=== PATIENT | female | born 1985 | race Caucasian/White ===

== ENCOUNTER 2017-09-10 20:56 | Emergency (ER) | payer BC, OTHER ==
[~2017-09-10] VITALS: Ht 160 cm; Wt 90.7 kg
[2017-09-10 22:30] LABS: BILIRUBIN,URINE NEGATIVE (NEGATIVE); CLARITY,URINE CLEAR; COLOR,URINE YELLOW; GLUCOSE, URINE (UA) NEGATIVE (NEGATIVE); KETONES,URINE 2+ (NEGATIVE); LEUKOCYTE ESTERASE ,URINE 1+ (NEGATIVE); NITRITE,URINE NEGATIVE (NEGATIVE); PH,URINE 6.5 (5-9); PROTEIN,URINE NEGATIVE (NEGATIVE); UROBILINOGEN,URINE 4 MG/DL (NORMAL)
[2017-09-10 22:32] LABS: BASOPHILS % (AUTO) 0 % (0-10); EOSINOPHILS # (AUTO) 0.1 10^3/uL (0.0-0.3); EOSINOPHILS % (AUTO) 1 % (0-10); HEMATOCRIT 38 % (35-52); HEMOGLOBIN 13.6 G/DL (11.5-16.0); LYMPHOCYTES # (AUTO) 1.1 X 10^3 (1.0-4.0); LYMPHOCYTES % (AUTO) 14 % (12-44); MEAN CORPUSCULAR HEMOGLOBIN 29 PG (25-34); MEAN CORPUSCULAR HGB CONC 35 G/DL (32-36); MEAN CORPUSCULAR VOLUME 83 FL (80-99); MEAN PLATELET VOLUME 9.1 FL (7.4-10.4); MONOCYTES # (AUTO) 0.9 X 10^3 (0.0-1.0); MONOCYTES % (AUTO) 11 % (0-12); NEUTROPHILS # (AUTO) 5.8 X 10^3 (1.8-7.8); NEUTROPHILS % (AUTO) 73 % (42-75); PLATELET COUNT 229 10^3/uL (130-400); RED BLOOD COUNT 4.64 10^6/uL (4.35-5.85); RED CELL DISTRIBUTION WIDTH 13.6 % (10.0-14.5); WHITE BLOOD COUNT 7.9 10^3/uL (4.3-11.0)
[2017-09-10 22:43] LABS: INR 1.1 (0.8-1.4); PROTHROMBIN TIME PATIENT 14.2 SEC (12.2-14.7)
[2017-09-10 22:47] LABS: AMPHETAMINE SCREEN, URINE NEGATIVE (NEGATIVE); BARBITURATE SCREEN URINE NEGATIVE (NEGATIVE); BENZODIAZEPINES SCREEN URINE NEGATIVE (NEGATIVE); CANNABINOID SCREEN, URINE NEGATIVE (NEGATIVE); COCAINE SCREEN URINE NEGATIVE (NEGATIVE); METHADONE STAT NEGATIVE (NEGATIVE); METHAMPHETAMINE SCREEN URINE S NEGATIVE (NEGATIVE); OPIATE SCREEN URINE NEGATIVE (NEGATIVE); OXYCODONE STAT NEGATIVE (NEGATIVE); PROPOXYPHENE STAT NEGATIVE (NEGATIVE); TRICYCLIC ANTIDEPRESSANTS SCRE NEGATIVE (NEGATIVE)
[2017-09-10 22:48] LABS: ALANINE AMINOTRANSFERASE 109 U/L (0-55); ALBUMIN 4.3 GM/DL (3.2-4.5); ALKALINE PHOSPHATASE 108 U/L (40-136); AMYLASE 42 U/L (25-125); BILIRUBIN,TOTAL 0.9 MG/DL (0.1-1.0); BUN/CREATININE RATIO 7; CALCIUM 9.1 MG/DL (8.5-10.1); CARBON DIOXIDE 19 MMOL/L (21-32); CHLORIDE 108 MMOL/L (98-107); CREATININE SERUM 0.71 MG/DL (0.60-1.30); GFR ESTIMATED > 60; GLUCOSE 94 MG/DL (70-105); LIPASE 27 U/L (8-78); POTASSIUM 3.5 MMOL/L (3.6-5.0); SODIUM 138 MMOL/L (135-145); TOTAL PROTEIN 7.2 GM/DL (6.4-8.2)
[2017-09-10 22:53] LABS: BACTERIA,URINE TRACE /HPF
[2017-09-10] MEDS ORDERED: RX-DOXYCYCLINE 100 MG (VIBRAMYCIN) TAB PPK#2 PO STA (23:25)
[2017-09-10] MEDS ORDERED: DOXY100C42 PO (23:28)
--- NOTE | 2017-09-10 23:28 | ED General ---
General Chief Complaint: Chest Wall/Rib Pain Stated Complaint: CHILLS/CP/ARMS TINGLING Nursing Triage Note: c/o chills and chest discomfort with deep breathing or movement Nursing Sepsis Screen: No Definite Risk Source of Information: Patient History of Present Illness Date Seen by Provider: Sep 10, 2017 Time Seen by Provider: 21:48 Initial Comments PT ARRIVES VIA POV PT STATES "I KEEP GETTING WARM AND I GET TINGLING IN MY CHEST AND IT GOES DOWN BOTH MY ARMS" --THOSE SYMPTOMS ARE NOT PRESENT NOW. THEN STATES "I CAN'T GET WARM AND I'M COLD" STATES HER TEMP WAS 99.2, AND SHE HAS HAD SWEATES SLIGHT COUGH SLIGHT SHORTNESS OF BREATH NO NAUSEA/VOMITING NO SWELLING IN LEGS/FEET NO KNOWN SICK CONTACTS NO HISTORY OF SIMILAR HAS NOT TAKEN ANYTHING FOR SYMPTOMS PT STATES SYMPTOMS BEGAN WHILE SHE WAS AT WORK, AROUND 1500, STATES SHE GOT OFF WORK AT 2000 AND CAME HERE. LMP 08/18/17. NORMAL. NO CONTROL NO PCP--STATES SHE JUST MOVED HERE LAST MARCH FROM [place] Allergies and Home Medications Allergies Coded Allergies: No Known Drug Allergies (Unverified , 09/10/17) Home Medications Doxycycline Monohydrate 100 Mg Capsule, 100 MG PO BID Prescribed by: MACIEJ ARAIZA on 09/10/17 9166 Patient Home Medication List Home Medication List Reviewed: Yes Review of Systems Constitutional: see HPI, chills, diaphoresis, fever EENTM: no symptoms reported Respiratory: no symptoms reported Cardiovascular: no symptoms reported Gastrointestinal: no symptoms reported Genitourinary: no symptoms reported : No LMP: August 18, 2017 Musculoskeletal: no symptoms reported Skin: no symptoms reported Psychiatric/Neurological: See HPI, Tingling Hematologic/Lymphatic: No Symptoms Reported Immunological/Allergic: no symptoms reported Past Jscfvan-Wmequj-Czbnvy Hx Patient Social History Alcohol Use: Denies Use Recreational Drug Use: No Smoking Status: Never a Smoker Recent Foreign Travel: No Contact w/Someone Who Travel: No Recent Infectious Disease Expo: No Recent Hopitalizations: No Physical Abuse: No Sexual Abuse: No Past Medical History Surgeries: No Respiratory: No Cardiac: No Neurological: No Reproductive Disorders: No Genitourinary: No Gastrointestinal: No Musculoskeletal: No Endocrine: No HEENT: No Cancer: No Psychosocial: No Nursing Suicide Risk Score: 0 Integumentary: No Blood Disorders: No Physical Exam Vital Signs Capillary Refill : Less Than 3 Seconds General Appearance: No Apparent Distress, Obese HEENT: PERRL/EOMI, TMs Normal, Pharyngeal Erythema (SLIGHT) Neck: Full Range of Motion, Normal Inspection, Non Tender, Supple Respiratory: Normal Breath Sounds, No Accessory Muscle Use, No Respiratory Distress Cardiovascular: Regular Rate, Rhythm, No Edema, No JVD, No Murmur, Normal Peripheral Pulses Gastrointestinal: Normal Bowel Sounds, No Organomegaly, No Pulsatile Mass, Non Tender, Soft Progress/Results/Core Measures Suspected Sepsis Recent Fever Within 48 Hours: No Infection Criteria Present: None New/Unexplained Altered Menta: No Sepsis Screen: No Definite Risk SIRS Temperature:99.2 Pulse: 104 Respiratory Rate: 18 Blood Pressure 138 /81 Mean: 100 Results/Orders Lab Results My Orders Vital Signs/I&O Capillary Refill : Less Than 3 Seconds Blood Pressure Mean: 100 Point of Care Testing Urine -Bedside: Negative Progress Note : Progress Note UNEVENTFUL ER STAY ECG Initial ECG Impression Date: Sep 10, 2017 Initial ECG Impression Time: 22:45 Initial ECG Rate: 93 Initial ECG Rhythm: Normal Sinus Initial ECG Comparisson: No Previous ECG Available Departure Impression Primary Impression: Bronchitis Disposition: 01 HOME, SELF-CARE Condition: Stable Departure-Patient Inst. Referrals: NO,LOCAL PHYSICIAN (PCP/Family) Primary Care Physician Patient Instructions: Acute Bronchitis, Adult (DC) Add. Discharge Instructions: TYLENOL AND MOTRIN NEEDED FOR PAIN OR FEVER ROBITUSSIN DM FOR COUGH LOTS OF CLEAR LIQUIDS FOLLOW UP WITH OF CHIQUIS IN 2-3 DAYS IF NO BETTER RETURN TO ER IF WORSE All discharge instructions reviewed with patient and/or family. Voiced understanding. 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
[2017-09-10] MEDS ORDERED: RX-DOXYCYCLINE 100 MG (VIBRAMYCIN) TAB PPK#2 PO ONE (23:32)
[2017-09-10 23:34] VITALS: BP 138/81
--- NOTE | 2017-09-11 08:03 | Diagnostic Imaging Report ---
Indication: Chest tightness. PA and lateral chest obtained at 1028 hrs. p.m. Heart and mediastinal silhouette are normal in appearance. The lungs are clear. There is no pneumothorax or pleural fluid. Impression: Negative chest. Dictated by: Dictated on workstation # [id number]
== END 2017-09-10 23:33 | disposition home or self-care (01) ==
LOC: ER 21:00
DX: J40 Bronchitis, not specified as acute or chronic (principal)
CPT/HCPCS: 36415; 71046; 80053; 80306; 81000; 82150; 83690; 83735; 83880; 84484; 84703; 85025; 85610; 85730; 86308; 93005

== ENCOUNTER 2018-08-21 19:04 | Emergency (ER) | payer BC, MEDICAID, OTHER ==
[~2018-08-21] VITALS: Ht 160 cm; Wt 86.2 kg
[~2018-08-21 19:04] MED LIST: DOXY100C42 PO
--- OUTSIDE RECORDS SUMMARY | 2018-08-21 19:08 | XMS REPORT | Continuity of Care Document ---
Author Organization Unknown Address Unknown Allergies There is no data. Medications There is no data. Problems There is no data. Procedures There is no data. Results There is no data. Encounters ACCT No. Visit Date/Time Discharge Status Pt. Type Provider Facility Loc./Unit Complaint [id number] 07/30/2018 10:40:00 07/30/2018 23:59:59 C[facility] Outpatient [facility]
[2018-08-21 20:20] LABS: BASOPHILS % (AUTO) 0 % (0-10); EOSINOPHILS # (AUTO) 0.2 10^3/uL (0.0-0.3); EOSINOPHILS % (AUTO) 2 % (0-10); HEMATOCRIT 40 % (35-52); HEMOGLOBIN 14.6 G/DL (11.5-16.0); LYMPHOCYTES # (AUTO) 2.6 X 10^3 (1.0-4.0); LYMPHOCYTES % (AUTO) 23 % (12-44); MEAN CORPUSCULAR HEMOGLOBIN 29 PG (25-34); MEAN CORPUSCULAR HGB CONC 36 G/DL (32-36); MEAN CORPUSCULAR VOLUME 81 FL (80-99); MONOCYTES # (AUTO) 0.7 X 10^3 (0.0-1.0); MONOCYTES % (AUTO) 6 % (0-12); NEUTROPHILS # (AUTO) 7.9 X 10^3 (1.8-7.8); NEUTROPHILS % (AUTO) 69 % (42-75); PLATELET COUNT 281 10^3/uL (130-400); RED CELL DISTRIBUTION WIDTH 13.4 % (10.0-14.5); WHITE BLOOD COUNT 11.5 10^3/uL (4.3-11.0)
[2018-08-21 20:21] LABS: BILIRUBIN,URINE NEGATIVE (NEGATIVE); CLARITY,URINE VERY CLOUDY; COLOR,URINE YELLOW; GLUCOSE, URINE (UA) NEGATIVE (NEGATIVE); KETONES,URINE NEGATIVE (NEGATIVE); LEUKOCYTE ESTERASE ,URINE 2+ (NEGATIVE); NITRITE,URINE NEGATIVE (NEGATIVE); PH,URINE 6 (5-9); PROTEIN,URINE 1+ (NEGATIVE); UROBILINOGEN,URINE NORMAL (NORMAL)
[2018-08-21 20:37] LABS: BACTERIA,URINE FEW /HPF
[2018-08-21] MEDS ORDERED: CEPHALEXIN 250 MG (KEFLEX) CAP PO ONE (21:00)
[2018-08-21] MEDS ORDERED: CEPH-507 PO (21:15)
--- NOTE | 2018-08-21 21:15 | ED GU-Female ---
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 PT STATES HISTORY OF 4 MISCARRIAGES. PT HAS NOT SEEN OBGYN YET. PT DENIES LOWER ABD PAIN. PT DENIES SEEING CLOTS PASSED IN TOILET. PT DENIES BURNING OR PAIN WITH URINATION. Nursing Sepsis Screen: No Definite Risk Source: patient Exam Limitations: no limitations History of Present Illness Date Seen by Provider: August 22, 2018 Time Seen by Provider: 20:06 Initial Comments This 33-year-old with 4 living children, 1 stillbirth, and 4 miscarriages presents to the emergency room at approximately 10 weeks gestational age with concerns about vaginal bleeding. She denies any pain. She has had no discomfort with intercourse. She denies vaginal discharge. She has no history of vaginal infections. She is new to the [facility] and has not established with an occupational physician yet but has an appointment at [facility] on September 07. She has afebrile. She denies dysuria. Spotting started last night and then stopped. She then started bleeding and passing clots today. Allergies and Home Medications Allergies Coded Allergies: No Known Drug Allergies (Unverified , 09/10/17) Home Medications Cephalexin 500 Mg Capsule, 500 MG PO TID Prescribed by: FARSHAD VALERIO on 08/21/182114 Doxycycline Monohydrate 100 Mg Capsule, 100 MG PO BID Prescribed by: MACIEJ ARAIZA on 09/10/17 6008 Patient Home Medication List Home Medication List Reviewed: Yes Review of Systems Review of Systems Constitutional: no symptoms reported EENTM: no symptoms reported Respiratory: no symptoms reported Cardiovascular: no symptoms reported Gastrointestinal: no symptoms reported Genitourinary: see HPI : Yes Musculoskeletal: no symptoms reported Skin: no symptoms reported Psychiatric/Neurological: No Symptoms Reported Endocrine: No Symptoms Reported Past Stkfijs-Ywvpgn-Cskmyt Hx Patient Social History Alcohol Use: Denies Use Recreational Drug Use: No Smoking Status: Never a Smoker Recent Foreign Travel: No Contact w/Someone Who Travel: No Recent Infectious Disease Expo: No Recent Hopitalizations: No Seasonal Allergies Seasonal Allergies: No Past Medical History Surgeries: No Respiratory: No Cardiac: No Neurological: No Reproductive Disorders: No Genitourinary: No Gastrointestinal: No Musculoskeletal: No Endocrine: No HEENT: No Cancer: No Psychosocial: No Integumentary: No Blood Disorders: No Physical Exam Vital Signs Vital Signs - First Documented 08/21/18 19:16 Temp 98.2 Pulse 66 Resp 18 B/P (MAP) 145/71 (95) Pulse Ox 100 Capillary Refill : Less Than 3 Seconds Height, Weight, BMI Height: 5'3.00" Weight: 190lbs. oz. 86.025302cb; BMI Method:Stated General Appearance: WD/WN, no apparent distress HEENT: PERRL/EOMI, normal ENT inspection Neck: normal inspection Cardiovascular: regular rate, rhythm, no edema, no murmur Respiratory: lungs clear, normal breath sounds, no respiratory distress Gastrointestinal: normal bowel sounds, non tender, soft Extremities: normal inspection, no pedal edema Neurologic/Psychiatric: physician office nurse II-XII nml as tested, no motor/sensory deficits, alert, normal mood/affect, oriented x 3 Skin: normal color, warm/dry Progress/Results/Core Measures Suspected Sepsis Recent Fever Within 48 Hours: No Infection Criteria Present: None New/Unexplained Altered Menta: No Sepsis Screen: No Definite Risk SIRS Temperature:98.2 Pulse: 66 Respiratory Rate: 18 Laboratory Tests 08/21/18 20:11: White Blood Count 11.5H Blood Pressure 145 /71 Mean: 95 Laboratory Tests 08/21/18 20:11: Platelet Count 281 Results/Orders Lab Results Laboratory Tests Test 08/21/18 19:45 08/21/18 20:11 Range/Units Urine Color YELLOW Urine Clarity VERY CLOUDY H Urine pH 6 5-9 Urine Specific [place] 1.005 L 1.016-1.022 Urine Protein 1+ H NEGATIVE Urine Glucose (UA) NEGATIVE NEGATIVE Urine Ketones NEGATIVE NEGATIVE Urine Nitrite NEGATIVE NEGATIVE Urine Bilirubin NEGATIVE NEGATIVE Urine Urobilinogen NORMAL NORMAL MG/DL Urine Leukocyte Esterase 2+ H NEGATIVE Urine RBC (Auto) 5+ H NEGATIVE Urine RBC 2-5 H /HPF Urine WBC 5-10 H /HPF Urine Squamous Epithelial Cells 2-5 /HPF Urine Crystals NONE /LPF Urine Bacteria FEW H /HPF Urine Casts NONE /LPF Urine Mucus NEGATIVE /LPF Urine Culture Indicated YES White Blood Count 11.5 H 4.3-11.0 10^3/uL Red Blood Count 4.97 4.35-5.85 10^6/uL Hemoglobin 14.6 11.5-16.0 G/DL Hematocrit 40 35-52 % Mean Corpuscular Volume 81 80-99 FL Mean Corpuscular Hemoglobin 29 25-34 PG Mean Corpuscular Hemoglobin Concent 36 32-36 G/DL Red Cell Distribution Width 13.4 10.0-14.5 % Platelet Count 281 130-400 10^3/uL Mean Platelet Volume 9.0 7.4-10.4 FL Neutrophils (%) (Auto) 69 42-75 % Lymphocytes (%) (Auto) 23 12-44 % Monocytes (%) (Auto) 6 0-12 % Eosinophils (%) (Auto) 2 0-10 % Basophils (%) (Auto) 0 0-10 % Neutrophils # (Auto) 7.9 H 1.8-7.8 X 10^3 Lymphocytes # (Auto) 2.6 1.0-4.0 X 10^3 Monocytes # (Auto) 0.7 0.0-1.0 X 10^3 Eosinophils # (Auto) 0.2 0.0-0.3 10^3/uL Basophils # (Auto) 0.0 0.0-0.1 10^3/uL Human Chorionic Gonadotropin, Quant 38552 H <5 MIU/ML My Orders Orders - FARSHAD ARMSTRONG MD Cbc With Automated Diff (08/21/18 20:06) Hcg,Quantitative (08/21/18 20:06) Ua Culture If Indicated (08/21/18 20:06) Abo Rh Type (08/21/18 20:06) Urine Culture (08/21/18 19:45) Cephalexin Capsule (Keflex Capsule) (08/21/18 21:00) Vital Signs/I&O Capillary Refill : Less Than 3 Seconds Blood Pressure Mean: 95 Progress Note : Progress Note HCG level was appropriate. Ultrasound was not available to confirm dates and viable . An outpatient order form was provided to the patient to obtain an ultrasound on Thursday. Case was discussed with Dr. García and ultrasound results will be called to her. There was some subtle suggestion of urinary tract infection and patient was treated accordingly. Return precautions were discussed. Departure Impression Primary Impression: Vaginal bleeding during Additional Impression: Urinary tract infection Qualified Codes: N39.0 - Urinary tract infection, site not specified Disposition: 01 HOME, SELF-CARE Condition: Improved Departure-Patient Inst. Decision time for Depature: 21:13 Referrals: [facility] (PCP/Family) Primary Care Physician Patient Instructions: Bleeding With (DC) Add. Discharge Instructions: Return to the hospital around 7:30 a.m. on Thursday morning to have your ultrasound performed. Report will be called to Dr. García at the [facility]. Return to care at a facility with ultrasound capability if you develop pain or other significant symptoms associated with your bleeding. Observe vaginal rest (nothing in the vagina including intercourse) until cleared by your doctor. Your urine was suspicious for urinary tract infection. Complete antibiotics as directed. All discharge instructions reviewed with patient and/or family. Voiced understanding. Scripts Cephalexin (Keflex) 500 Mg Capsule 500 MG PO TID, #20 CAP Prov: FARSHAD ARMSTRONG MD 08/21/18 FARSHAD ARMSTRONG MD August 21, 2018 21:15
[2018-08-21 21:21] VITALS: BP 135/70
== END 2018-08-21 21:22 | disposition home or self-care (01) ==
LOC: EDUNIT# 19:04 → ER 19:05
DX: O23.41 Unspecified infection of urinary tract in pregnancy, first trimester (principal); O20.9 Hemorrhage in early pregnancy, unspecified; Z3A.10 10 weeks gestation of pregnancy; Z87.59 Personal history of other complications of pregnancy, childbirth and the puerperium
CPT/HCPCS: 36415; 81000; 84702; 84703; 85025; 86900; 86901; 87088

== ENCOUNTER → 2018-08-23 | Outpatient (CLI) | payer MEDICAID ==
[~2018-08-23] MED LIST changes: +CEPH-507 PO
--- NOTE | 2018-08-23 08:40 | Diagnostic Imaging Report ---
Date: August 23, 2018. Indication: 33-year-old female, vaginal bleeding during . Comparison: None. Findings: The uterus measures 4.9 x 4.6 x 8.9 cm in size. There is an intrauterine gestational sac with shape of the gestational sac being slightly irregular. There is a probable large yolk sac measuring up to 11 mm in diameter. There is no identified pole or heart rate able to be demonstrated. Gestational sac measurements would predict an estimated age of 7 weeks and 5 days. The right and left ovaries are not well seen. There is no demonstrated adnexal mass. There is no free pelvic fluid. Impression: 1. Somewhat irregular shape of the gestational sac with gestational sac measurements predicting an estimated gestational age of 7 weeks and 5 days. There is a probable large yolk sac measuring up to 11 mm in diameter without demonstrated pole. Recommend correlation with expected gestational age. Clinical correlation and followup recommended. 2. The ovaries are not well seen. No demonstrated adnexal mass or free pelvic fluid. Dictated by: Dictated on workstation # [id number]
== END ==
LOC: RAD 07:32
PROVIDERS: ATTEND Family Medicine
DX: O20.9 Hemorrhage in early pregnancy, unspecified (principal); Z3A.01 Less than 8 weeks gestation of pregnancy
CPT/HCPCS: 76801

== ENCOUNTER 2018-08-29 13:20 | Day surgery (SDC) | payer MEDICAID ==
[2018-08-29] VITALS (9 sets, daily range): BP systolic 103–118; BP diastolic 49–67
[~2018-08-29] VITALS: Ht 160 cm; Wt 86.2 kg
--- OUTSIDE RECORDS SUMMARY | 2018-08-29 13:25 | XMS REPORT | Continuity of Care Document ---
Author Organization Unknown Address Unknown Allergies There is no data. Medications There is no data. Problems There is no data. Procedures There is no data. Results Test Result Range HCG, QUANTITATIVE - 08/23/18 10:33 [place], [place] [address] mIU/mL NRG Encounters ACCT No. Visit Date/Time Discharge Status Pt. Type Provider Facility Loc./Unit Complaint [id number] 08/23/2018 10:25:00 08/23/2018 23:59:59 [facility] Outpatient FRANDY VEGAS [facility] [id number] 08/23/2018 10:25:00 Document Registration
--- NOTE | 2018-08-29 13:45 | NUR ---
pt also states she has been feeling dizzy
[2018-08-29 13:59] LABS: BASOPHILS % (AUTO) 0 % (0-10); EOSINOPHILS # (AUTO) 0.4 10^3/uL (0.0-0.3); EOSINOPHILS % (AUTO) 3 % (0-10); HEMATOCRIT 41 % (35-52); HEMOGLOBIN 14.7 G/DL (11.5-16.0); LYMPHOCYTES % (AUTO) 18 % (12-44); MEAN CORPUSCULAR HEMOGLOBIN 29 PG (25-34); MEAN CORPUSCULAR HGB CONC 36 G/DL (32-36); MEAN CORPUSCULAR VOLUME 80 FL (80-99); MEAN PLATELET VOLUME 9.4 FL (7.4-10.4); MONOCYTES # (AUTO) 0.7 X 10^3 (0.0-1.0); MONOCYTES % (AUTO) 6 % (0-12); NEUTROPHILS % (AUTO) 72 % (42-75); PLATELET COUNT 305 10^3/uL (130-400); RED CELL DISTRIBUTION WIDTH 13.2 % (10.0-14.5)
[2018-08-29] MEDS ORDERED: fentaNYL INJECTION 100 MCG/2 ML AMP IVP PRN (14:00)
[2018-08-29 14:02] LABS: BILIRUBIN,URINE NEGATIVE (NEGATIVE); CLARITY,URINE VERY CLOUDY; COLOR,URINE RED; GLUCOSE, URINE (UA) NEGATIVE (NEGATIVE); KETONES,URINE NEGATIVE (NEGATIVE); LEUKOCYTE ESTERASE ,URINE 2+ (NEGATIVE); NITRITE,URINE NEGATIVE (NEGATIVE); PH,URINE 6.5 (5-9); PROTEIN,URINE 3+ (NEGATIVE); UROBILINOGEN,URINE NORMAL (NORMAL)
--- NOTE | 2018-08-29 14:07 | ED GU-Female ---
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 Pt was put on an antibitoic here in the ER on thursday and was told to follow up with [facility]. Thursday [facility] told her that she was having a miscarriage. Pt's ultrasound confirmed that. Today she started having heavy bleeding with clots Nursing Sepsis Screen: No Definite Risk Source: patient Exam Limitations: no limitations History of Present Illness Date Seen by Provider: August 29, 2018 Time Seen by Provider: 13:40 Initial Comments 33-year-old female who presents to the emergency room with complaints of heavy vaginal bleeding saturating 1 pad every 30 minutes since around 9:00 this morning. She is approximately 10 weeks and was informed that she is having a miscarriage that is confirmed by ultrasound last week. She has had intermittent bleeding since ultrasound but feels that it is constant at this time. She is having suprapubic abdominal cramping. She has 4 living children, she's had one stillbirth, and this will be her fifth miscarriage. Timing/Duration: week Severity/Quality: cramping Location: suprapubic Associated Symptoms: denies symptoms Allergies and Home Medications Allergies Coded Allergies: No Known Drug Allergies (Unverified , 09/10/17) Home Medications Cephalexin 500 Mg Capsule, 500 MG PO TID Prescribed by: FARSHAD VALERIO on 08/21/182114 Doxycycline Monohydrate 100 Mg Capsule, 100 MG PO BID Prescribed by: MACIEJ ARAIZA on 09/10/17 2328 Ibuprofen 800 Mg Tablet, 800 MG PO Q6H PRN for PAIN Prescribed by: TIFFANIE WALDRON on 08/29/18 1606 Oxycodone HCl/Acetaminophen 1 Each Tablet, 1 TAB PO Q4H Prescribed by: TIFFANIE WALDRON on 08/29/18 1606 Patient Home Medication List Home Medication List Reviewed: Yes Review of Systems Review of Systems Constitutional: see HPI; No chills, No fever Genitourinary: see HPI, discharge (vaginal bleeding) All Other Systemes Reviewed Negative Unless Noted: Yes Past Trbaxvm-Ryuzop-Azaiqb Hx Past Med/Social Hx: Reviewed Nursing Past Med/Soc Hx Patient Social History Alcohol Use: Denies Use Recreational Drug Use: No Recent Foreign Travel: No Contact w/Someone Who Travel: No Recent Infectious Disease Expo: No Recent Hopitalizations: No Seasonal Allergies Seasonal Allergies: No Past Medical History Surgeries: No Respiratory: No Cardiac: No Neurological: No Reproductive Disorders: No Genitourinary: No Gastrointestinal: No Musculoskeletal: No Endocrine: No HEENT: No Cancer: No Psychosocial: No Integumentary: No Blood Disorders: No Family Medical History Reviewed Nursing Family Hx Physical Exam Vital Signs Vital Signs - First Documented 08/29/18 13:32 Temp 97.7 Pulse 84 Resp 18 B/P (MAP) 128/77 (94) Pulse Ox 100 O2 Delivery Room Air Capillary Refill : Less Than 3 Seconds Height, Weight, BMI Height: 5'3.00" Weight: 190lbs. oz. 86.382690ar; BMI Method:Stated General Appearance: WD/WN, no apparent distress Cardiovascular: normal peripheral pulses, regular rate, rhythm, no edema, no gallop, no JVD, no murmur Respiratory: chest non-tender, lungs clear, normal breath sounds, no respiratory distress, no accessory muscle use, respiratory distress Gastrointestinal: normal bowel sounds, non tender, soft, no organomegaly, no pulsatile mass, abnormal bowel sounds Extremities: normal capillary refill Neurologic/Psychiatric: alert, normal mood/affect, oriented x 3 Skin: normal color, warm/dry Progress/Results/Core Measures Suspected Sepsis Recent Fever Within 48 Hours: No Infection Criteria Present: None New/Unexplained Altered Menta: No Sepsis Screen: No Definite Risk SIRS Temperature:97.7 Pulse: 84 Respiratory Rate: 18 Laboratory Tests 08/29/18 13:39: White Blood Count 11.0 Blood Pressure 128 /77 Mean: 94 Laboratory Tests 08/29/18 13:39: Creatinine 0.72, Platelet Count 305, Total Bilirubin 0.5 Results/Orders Lab Results Laboratory Tests Test 08/29/18 13:39 08/29/18 13:58 Range/Units White Blood Count 11.0 4.3-11.0 10^3/uL Red Blood Count 5.09 4.35-5.85 10^6/uL Hemoglobin 14.7 11.5-16.0 G/DL Hematocrit 41 35-52 % Mean Corpuscular Volume 80 80-99 FL Mean Corpuscular Hemoglobin 29 25-34 PG Mean Corpuscular Hemoglobin Concent 36 32-36 G/DL Red Cell Distribution Width 13.2 10.0-14.5 % Platelet Count 305 130-400 10^3/uL Mean Platelet Volume 9.4 7.4-10.4 FL Neutrophils (%) (Auto) 72 42-75 % Lymphocytes (%) (Auto) 18 12-44 % Monocytes (%) (Auto) 6 0-12 % Eosinophils (%) (Auto) 3 0-10 % Basophils (%) (Auto) 0 0-10 % Neutrophils # (Auto) 8.0 H 1.8-7.8 X 10^3 Lymphocytes # (Auto) 2.0 1.0-4.0 X 10^3 Monocytes # (Auto) 0.7 0.0-1.0 X 10^3 Eosinophils # (Auto) 0.4 H 0.0-0.3 10^3/uL Basophils # (Auto) 0.0 0.0-0.1 10^3/uL Sodium Level 141 135-145 MMOL/L Potassium Level 3.8 3.6-5.0 MMOL/L Chloride Level 106 98-107 MMOL/L Carbon Dioxide Level 24 21-32 MMOL/L Anion Gap 11 5-14 MMOL/L Blood Urea Nitrogen 8 7-18 MG/DL Creatinine 0.72 0.60-1.30 MG/DL Estimat Glomerular Filtration Rate > 60 BUN/Creatinine Ratio 11 Glucose Level 108 H 70-105 MG/DL Calcium Level 9.7 8.5-10.1 MG/DL Corrected Calcium 8.5-10.1 MG/DL Total Bilirubin 0.5 0.1-1.0 MG/DL Aspartate Amino Transf (AST/SGOT) 15 5-34 U/L Alanine Aminotransferase (ALT/SGPT) 16 0-55 U/L Alkaline Phosphatase 78 40-136 U/L Total Protein 7.6 6.4-8.2 GM/DL Albumin 4.6 H 3.2-4.5 GM/DL Human Chorionic Gonadotropin, Quant 2953 H <5 MIU/ML Urine Color RED H Urine Clarity VERY CLOUDY H Urine pH 6.5 5-9 Urine Specific [place] 1.010 L 1.016-1.022 Urine Protein 3+ H NEGATIVE Urine Glucose (UA) NEGATIVE NEGATIVE Urine Ketones NEGATIVE NEGATIVE Urine Nitrite NEGATIVE NEGATIVE Urine Bilirubin NEGATIVE NEGATIVE Urine Urobilinogen NORMAL NORMAL MG/DL Urine Leukocyte Esterase 2+ H NEGATIVE Urine RBC (Auto) 5+ H NEGATIVE Urine RBC TNTC H /HPF Urine WBC RARE /HPF Urine Crystals NONE /LPF Urine Bacteria NEGATIVE /HPF Urine Casts NONE /LPF Urine Mucus NEGATIVE /LPF Urine Culture Indicated NO My Orders Orders - DELMIS CADENA Cbc With Automated Diff (08/29/18 13:40) Hcg,Quantitative (08/29/18 13:40) Ed Iv/Invasive Line Start (08/29/18 13:40) Comprehensive Metabolic Panel (08/29/18 13:40) Ua Culture If Indicated (08/29/18 13:40) Fentanyl Injection (Sublimaze Injection (08/29/18 14:00) Medications Given in ED Current Medications Medications Dose Ordered Sig/Sharri Route Start Time Stop Time Status Last Admin Dose Admin Fentanyl Citrate 25 mcg ONCE PRN IVP 08/29/18 14:00 08/29/18 14:07 25 MCG Vital Signs/I&O 08/29/18 08/29/18 13:32 15:59 Temp 97.7 97.3 Pulse 84 84 Resp 18 12 B/P (MAP) 128/77 (94) 112/67 (82) Pulse Ox 100 100 O2 Delivery Room Air Room Air Capillary Refill : Less Than 3 Seconds Blood Pressure Mean: 94 Progress Note : Time: 15:00 Progress Note I have seen and evaluated the patient. I've informed her of her laboratory findings. Dr. Szymanski is here at this time to see the patient and he wishes to take her to a war for a D&C. She agrees with plan of care. Departure Communication (Admissions) Time/Spoke to Admitting Phy: 15:00 Dr. Szymanski Plans for OR Impression Primary Impression: Incomplete miscarriage Disposition: ADMITTED INPATIENT Condition: Stable/Unchanged Admissions Decision to Admit Reason: Admit from ER (General) Decision to Admit/Date: August 29, 2018 Time/Decision to Admit Time: 15:00 Departure-Patient Inst. Referrals: [facility] (PCP/Family) Primary Care Physician Scripts Oxycodone HCl/Acetaminophen (Percocet 5-325 mg Tablet) 1 Each Tablet 1 TAB PO Q4H for PAIN-MODERATE MDD 6 TABS for 7 Days, #20 TAB Prov: TIFFANIE SZYMANSKI MD 08/29/18 Ibuprofen (Ibuprofen) 800 Mg Tablet 800 MG PO Q6H PRN for PAIN, #60 TAB Prov: TIFFANIE SZYMANSKI MD 08/29/18 DELMIS CADENA August 29, 2018 14:07
[2018-08-29 14:16] LABS: BACTERIA,URINE NEGATIVE /HPF; RBC,URINE TNTC /HPF; WBC,URINE RARE /HPF
[2018-08-29 14:40] LABS: ALANINE AMINOTRANSFERASE 16 U/L (0-55); ALBUMIN 4.6 GM/DL (3.2-4.5); ALKALINE PHOSPHATASE 78 U/L (40-136); BILIRUBIN,TOTAL 0.5 MG/DL (0.1-1.0); BUN/CREATININE RATIO 11; CALCIUM 9.7 MG/DL (8.5-10.1); CARBON DIOXIDE 24 MMOL/L (21-32); CHLORIDE 106 MMOL/L (98-107); CREATININE SERUM 0.72 MG/DL (0.60-1.30); GFR ESTIMATED > 60; GLUCOSE 108 MG/DL (70-105); POTASSIUM 3.8 MMOL/L (3.6-5.0); SODIUM 141 MMOL/L (135-145); TOTAL PROTEIN 7.6 GM/DL (6.4-8.2)
--- NOTE | 2018-08-29 14:40 | NUR ---
The fentanyl helped with the patient's pain. 0/10
--- NOTE | 2018-08-29 15:19 | NUR ---
pt's pain is now 06/13
--- NOTE | 2018-08-29 15:40 | NUR ---
Dr. Szymanski in room with patient
[2018-08-29] MEDS ORDERED: D5 LR IV SOLUTION 1,000 ML IV SCH (15:59)
--- OUTSIDE RECORDS SUMMARY | 2018-08-29 15:59 | XMS REPORT | Continuity of Care Document ---
Author Organization Unknown Address Unknown Allergies There is no data. Medications There is no data. Problems There is no data. Procedures There is no data. Results Test Result Range HCG, QUANTITATIVE - 08/23/18 10:33 H[place], [place] QN [address] mIU/mL NRG Encounters ACCT No. Visit Date/Time Discharge Status Pt. Type Provider Facility Loc./Unit Complaint [id number] 08/23/2018 10:25:00 08/23/2018 23:59:59 [facility] Outpatient FRANDY VEGAS [facility] [id number] 08/23/2018 10:25:00 Document Registration
[2018-08-29] MEDS ORDERED: oxyCODONE/APAP 5/325MG (PERCOCET 5) TABLET PO PRN (16:00)
[2018-08-29] MEDS ORDERED: KETOROLAC 30 MG/ML VIAL IVP ONE (16:00)
[2018-08-29] MEDS ORDERED: MEPERIDINE (DEMEROL) INJ 100 MG/ML IM ONE (16:00)
[2018-08-29] MEDS ORDERED: ONDANSETRON 4 MG/2 ML (SDV) Z0FRAN IVP PRN ×2 (16:00→19:15)
[2018-08-29] MEDS ORDERED: PROMETHAZINE INJ 25 MG/ML (PHENERGAN) AMP IM ONE (16:00)
--- NOTE | 2018-08-29 16:04 | History & Physical ---
History and Physical Date Seen by Provider: August 29, 2018 Time Seen by Provider: 16:01 This patient is a 33-year-old G2 and the 5 LC 484 white female currently at estimated 8 or 10 weeks' gestation. She has been bleeding by her report for almost a week the bleeding dramatically increased today associated with painful cramps. Quantitative hCG done last week was in the 10,000 range today it is down around 2000. She had an ultrasound on the of this month that showed a 7+ week gestational sac with possibly an 11 mm yolk sac but no pole. She does want to have intervention to bring this to them and. She denies any other complaints and has no problems with her bowel or bladder. Allergies are none Medications are some type of antibiotic for urinary tract infection Social history is negative for drugs tobacco or alcohol use Family history is noncontributory Medical history is negative Surgical history is negative Obstetric history includes spontaneous vaginal delivery 4 spontaneous vaginal delivery of a stillbirth at around 6 minutes gestation 1 SAB 4 and then the current HEENT exam is normal Neck supple no lymphadenopathy no thyromegaly Abdomen is soft nontender nondistended Extremities show no clubbing cyanosis. There is no Homans sign. Pelvic exam is deferred Laboratory Tests Test 08/29/18 13:39 08/29/18 13:58 Range/Units White Blood Count 11.0 4.3-11.0 10^3/uL Red Blood Count 5.09 4.35-5.85 10^6/uL Hemoglobin 14.7 11.5-16.0 G/DL Hematocrit 41 35-52 % Mean Corpuscular Volume 80 80-99 FL Mean Corpuscular Hemoglobin 29 25-34 PG Mean Corpuscular Hemoglobin Concent 36 32-36 G/DL Red Cell Distribution Width 13.2 10.0-14.5 % Platelet Count 305 130-400 10^3/uL Mean Platelet Volume 9.4 7.4-10.4 FL Neutrophils (%) (Auto) 72 42-75 % Lymphocytes (%) (Auto) 18 12-44 % Monocytes (%) (Auto) 6 0-12 % Eosinophils (%) (Auto) 3 0-10 % Basophils (%) (Auto) 0 0-10 % Neutrophils # (Auto) 8.0 H 1.8-7.8 X 10^3 Lymphocytes # (Auto) 2.0 1.0-4.0 X 10^3 Monocytes # (Auto) 0.7 0.0-1.0 X 10^3 Eosinophils # (Auto) 0.4 H 0.0-0.3 10^3/uL Basophils # (Auto) 0.0 0.0-0.1 10^3/uL Sodium Level 141 135-145 MMOL/L Potassium Level 3.8 3.6-5.0 MMOL/L Chloride Level 106 98-107 MMOL/L Carbon Dioxide Level 24 21-32 MMOL/L Anion Gap 11 5-14 MMOL/L Blood Urea Nitrogen 8 7-18 MG/DL Creatinine 0.72 0.60-1.30 MG/DL Estimat Glomerular Filtration Rate > 60 BUN/Creatinine Ratio 11 Glucose Level 108 H 70-105 MG/DL Calcium Level 9.7 8.5-10.1 MG/DL Corrected Calcium 8.5-10.1 MG/DL Total Bilirubin 0.5 0.1-1.0 MG/DL Aspartate Amino Transf (AST/SGOT) 15 5-34 U/L Alanine Aminotransferase (ALT/SGPT) 16 0-55 U/L Alkaline Phosphatase 78 40-136 U/L Total Protein 7.6 6.4-8.2 GM/DL Albumin 4.6 H 3.2-4.5 GM/DL Human Chorionic Gonadotropin, Quant 2953 H <5 MIU/ML Urine Color RED H Urine Clarity VERY CLOUDY H Urine pH 6.5 5-9 Urine Specific Casey 1.010 L 1.016-1.022 Urine Protein 3+ H NEGATIVE Urine Glucose (UA) NEGATIVE NEGATIVE Urine Ketones NEGATIVE NEGATIVE Urine Nitrite NEGATIVE NEGATIVE Urine Bilirubin NEGATIVE NEGATIVE Urine Urobilinogen NORMAL NORMAL MG/DL Urine Leukocyte Esterase 2+ H NEGATIVE Urine RBC (Auto) 5+ H NEGATIVE Urine RBC TNTC H /HPF Urine WBC RARE /HPF Urine Crystals NONE /LPF Urine Bacteria NEGATIVE /HPF Urine Casts NONE /LPF Urine Mucus NEGATIVE /LPF Urine Culture Indicated NO Lab work is noted Assessment and plan first trimester nonviable likely either missed or currently incomplete plan is to proceed to the operating room for D&C. Surgical risk complication recovering follow-up have been discussed. All patient's questions have been answered. She is ready to proceed. Incomplete spontaneous Allergies and Home Medications Allergies Coded Allergies: No Known Drug Allergies (Unverified , 09/10/17) Home Medications Cephalexin 500 Mg Capsule, 500 MG PO TID Prescribed by: FARSHAD VALERIO on 08/21/182114 Doxycycline Monohydrate 100 Mg Capsule, 100 MG PO BID Prescribed by: MACIEJ ARAIZA on 09/10/17 3658 Patient Home Medication List Home Medication List Reviewed: Yes TIFFANIE MOSELEY MD August 29, 2018 16:04
[2018-08-29] MEDS ORDERED: IBUP-1780 PO (16:06)
[2018-08-29] MEDS ORDERED: OXYC1TAB87 PO (16:06)
--- NOTE | 2018-08-29 16:07 | Discharge Instructions ---
Discharge Instructions Discharge Medications New, Converted or Re-Newed RX: RX on Chart Patient Instructions Patient Instructions: As directed Return to The Hospital For: As directed Activity & Diet Discharge Diet: No Restrictions Activity as Tolerated: No Orders-Post D/C & Referrals Follow Up Appt: Call to make follow up appt. for patient in 2 weeks. Activity: Rest for 24 hours, than as tolerated. Please call in RX to patient pharmacy. Diet: As tolerated-Clear Liquids only if nauseated. Tomorrow, may shower or tub bathe as desired. No driving for 24 hours, no alcoholic beverages for 24 hours, and nothing per vagina (no tampons, douching, or intercoarse) for 2 weeks. Patient to return to the clinic as soon as possible for: Temperature greater than 101F, Severe Pain, Foul discharge from incision or vagina, Excessive Bleeding (more than a period). TIFFANIE MOSELEY MD August 29, 2018 16:07
--- NOTE | 2018-08-29 16:08 | Progress Note-Pre Operative ---
Pre-Operative Progress Note H&P Reviewed The H&P was reviewed, patient examined and no changes noted. Date Seen by Provider: August 29, 2018 Time Seen by Provider: 16:08 Date H&P Reviewed: August 29, 2018 Time H&P Reviewed: 16:08 Pre-Operative Diagnosis: First trimester incomplete/missed TIFFANIE MOSELEY MD August 29, 2018 16:08
--- NOTE | 2018-08-29 16:09 | Progress Note-Post Operative ---
Post-Operative Progess Note Surgeon (s)/Treasurer (s) Surgeon TIFFANIE MOSELEY MD Treasurer: no Pre-Operative Diagnosis First trimester incomplete/missed Post-Operative Diagnosis Same with pathology pending Procedure & Operative Findings Date of Procedure 08/29/18 Procedure Performed/Findings D&C for first trimester missed Anesthesia Type GETA Estimated Blood Loss Estimated blood loss (mL): 100 Specimens/Packing Specimens Removed Uterine contents/products of conception Packing: no TIFFANIE MOSELEY MD August 29, 2018 16:09
--- NOTE | 2018-08-29 16:39 | NUR ---
pt awaiting surgery. No complaints at this time
[2018-08-29] MEDS ORDERED: fentaNYL INJECTION 100 MCG/2 ML AMP ONE (16:55)
[2018-08-29] MEDS ORDERED: SEVOFLURANE (ULTANE) 15 ML INHAL SOLN ONE (16:55)
[2018-08-29] MEDS ORDERED: ONDANSETRON 4 MG/2 ML (SDV) Z0FRAN ONE (16:55)
[2018-08-29] MEDS ORDERED: DEXAMETHASONE 10 MG/ML (DECADRON) 1 ML VIAL ONE (16:55)
[2018-08-29] MEDS ORDERED: proPOfol 200 MG/20 ML (DIPRIVAN) VIAL IV ONE (16:55)
[2018-08-29] MEDS ORDERED: MIDAZOLAM 2 MG/2 ML (VERSED) VIAL ONE (16:55)
[2018-08-29] MEDS ORDERED: SUCCINYLCHOLINE INJ 100 MG/5 ML SYR ONE (16:55)
[2018-08-29] MEDS ORDERED: LACTATED RINGERS 1,000 ML IV PRN (17:07)
[2018-08-29] MEDS ORDERED: ceFAZolin INJECTION 1,000 MG ONE (17:19)
[2018-08-29] MEDS ORDERED: HYDROmorphone 2 MG/ML VIAL (DILAUDID) ONE (17:39)
[2018-08-29] MEDS ORDERED: ceFAZolin INJECTION 1,000 MG in WATER (STERILE) FOR INJECTION 10 ML IV ONE (18:00)
[2018-08-29] MEDS ORDERED: ROCURONIUM 10 MG/ML 5 ML SYRINGE IV ONE (18:16)
[2018-08-29] MEDS ORDERED: METOCLOPRAMIDE INJ 10 MG/2 ML (REGLAN) ONE (18:29)
--- NOTE | 2018-08-29 19:04 | OPERATIVE REPORT ---
DATE OF SERVICE: 08/29/2018 PREOPERATIVE DIAGNOSIS: Missed AB. POSTOPERATIVE DIAGNOSIS: Missed AB. OPERATIVE PROCEDURE: D and C for first trimester missed . OPERATIVE DESCRIPTION: With the patient in the supine position under satisfactory general anesthesia, she was repositioned in dorsal lithotomy position in the [facility] stirrups and prepped and draped in the usual fashion for vaginal surgery. Urinary bladder was emptied with a straight catheter. A weighted speculum was placed in the posterior fornix of vagina. The cervix was exposed and grasped anteriorly with single tooth tenaculum. Uterus was sounded to 9 cm with uterine sound. The cervix was then serially dilated with Luan dilators to accommodate a #10 curved suction curette, which was introduced and the endometrial cavity curettaged in all 4 quadrants with suction with removal of a moderate amount of trophoblastic and decidual appearing tissue, blood clot and debris. The endometrial cavity was then sharply curettaged in all 4 quadrants to good uterine cry and then suction curettaged a final time to remove all blood clot and debris. The tenaculum was removed from the cervix. There was no bleeding from the puncture site. There was minimal bleeding from the cervical os. At this point, the procedure was complete. The sponge and needle counts were correct. Estimated blood loss was around 100 mL. The patient tolerated the procedure well and was uneventfully awakened from her general anesthesia and transferred to recovery room in stable condition with plans for discharge home PAR. Job ID: [id number] DocumentID: [id number] Dictated Date: 08/29/2018 18:42:17 Community Development Technician Date: 08/29/2018 19:03:53 Dictated By: TIFFANIE MOSELEY MD
[2018-08-29] MEDS ORDERED: HYDROmorphone 2 MG/ML VIAL (DILAUDID) IV ONE (19:15)
--- NOTE | 2018-08-29 20:00 | NUR ---
pt arrived to unit. report received from Porsche LOPEZ. pt denies any nausea or pain. family at bedside. assessment completed.
--- NOTE | 2018-08-29 20:06 | Anesthesia-General Post-Op ---
General Patient Condition Mental Status/LOC: Same as Preop Cardiovascular: Satisfactory Nausea/Vomiting: Absent Respiratory: Satisfactory Pain: Controlled Complications: Absent Post Op Complications Complications None Follow Up Care/Instructions Patient Instructions None needed. Anesthesia/Patient Condition Patient Condition Patient is doing well, no complaints, stable vital signs, no apparent adverse anesthesia problems. No complications reported per nursing. D/C home per [facility] [place] Criteria: Yes WILLAM CARPENTER CRNA August 29, 2018 20:06
--- NOTE | 2018-08-29 20:45 | NUR ---
cold tray given.
--- NOTE | 2018-08-29 21:30 | NUR ---
pt up to the bathroom. positive void 300cc of clear yellow urine.
--- NOTE | 2018-08-29 22:00 | NUR ---
Discharge instructions verbalized with pt. pt verbalized understanding. pt will call office on Thursday for follow up appointment. no distress noted.
== END 2018-08-29 22:00 | disposition home or self-care (01) ==
LOC: EDUNIT# 13:20 → ER 13:21 → SDC 15:56 → WS 20:00 → SDC 22:00
PROVIDERS: ATTEND Obstetrics & Gynecology
DX: O02.1 Missed abortion (principal)
CPT/HCPCS: 36415; 80053; 81000; 84702; 85025

== ENCOUNTER 2018-10-13 08:22 | Emergency (ER) | payer MEDICAID ==
[~2018-10-13] VITALS: Ht 160 cm; Wt 86.2 kg
[~2018-10-13 08:22] MED LIST changes: +IBUP-1780 PO; +OXYC1TAB87 PO
--- OUTSIDE RECORDS SUMMARY | 2018-10-13 08:26 | XMS REPORT | Continuity of Care Document ---
Author Organization Unknown Address Unknown Allergies Active Description Code Type Severity Reaction Onset Reported/Identified Relationship to Patient Clinical Status Yes No Known Drug Allergies [id number] Drug Allergy Unknown N/A 09/10/2017 Medications There is no data. Problems Date Dx Coded Attending Type Code Diagnosis Diagnosed By 09/10/2017 MACIEJ ARAIZA DO Ot J40 BRONCHITIS, NOT SPECIFIED ACUTE OR CH 09/10/2017 MACIEJ ARAIZA DO Ot R07.89 OTHER CHEST PAIN 09/14/2017 MACIEJ ARAIZA DO Ot J40 BRONCHITIS, NOT SPECIFIED ACUTE OR CH 09/14/2017 MACIEJ ARAIZA DO Ot R07.89 OTHER CHEST PAIN 08/21/2018 FARSHAD ARMSTRONG MD Ot O20.9 HEMORRHAGE IN EARLY , UNSPECIFI 08/21/2018 FARSHAD ARMSTRONG MD Ot O23.41 UNSP INFCT OF URINARY TRACT IN 08/21/2018 FARSHAD ARMSTRONG MD Ot Z3A.10 10 WEEKS GESTATION OF 08/21/2018 FARSHAD ARMSTRONG MD Ot Z87.59 PERSONAL HISTORY OF COMP OF PREG, CHLDBR 08/24/2018 FARSHAD ARMSTRONG MD Ot O20.9 HEMORRHAGE IN EARLY , UNSPECIFI 08/24/2018 FARSHAD ARMSTRONG MD Ot Z3A.01 LESS THAN 8 WEEKS GESTATION OF 08/24/2018 FARSHAD ARMSTRONG MD Ot O20.9 HEMORRHAGE IN EARLY , UNSPECIFI 08/24/2018 FARSHAD ARMSTRONG MD Ot O23.41 UNSP INFCT OF URINARY TRACT IN 08/24/2018 FARSHAD ARMSTRONG MD Ot Z3A.10 10 WEEKS GESTATION OF 08/24/2018 FARSHAD ARMSTRONG MD Ot Z87.59 PERSONAL HISTORY OF COMP OF PREG, CHLDBR 08/27/2018 FARSHAD ARMSTRONG MD Ot O20.9 HEMORRHAGE IN EARLY , UNSPECIFI 08/27/2018 FARSHAD ARMSTRONG MD, Ot O23.41 UNSP INFCT OF URINARY TRACT IN 08/27/2018 FARSHAD ARMSTRONG MD, Ot Z3A.10 10 WEEKS GESTATION OF 08/27/2018 FARSHAD ARMSTRONG MD, Ot Z87.59 PERSONAL HISTORY OF COMP OF PREG, CHLDBR 08/29/2018 TIFFANIE MOSELEY MD Ot O02.1 MISSED 09/01/2018 TIFFANIE MOSELEY MD, Ot O02.1 MISSED 09/10/2018 FARSHAD ARMSTRONG MD, Ot O20.9 HEMORRHAGE IN EARLY , UNSPECIFI 09/10/2018 FARSHAD ARMSTRONG MD, Ot Z3A.01 LESS THAN 8 WEEKS GESTATION OF Procedures There is no data. Results Test Result Range Urine drug screening test - 09/10/17 22:15 Urine phencyclidine detection by screening method NEGATIVE NEGATIVE Urine benzodiazepines detection by screening method NEGATIVE NEGATIVE Urine cocaine detection NEGATIVE NEGATIVE Urine amphetamines detection by screening method NEGATIVE NEGATIVE Urine methamphetamine detection by screening method NEGATIVE NEGATIVE Urine cannabinoids detection by screening method NEGATIVE NEGATIVE Urine opiates detection by screening method NEGATIVE NEGATIVE Urine barbiturates detection NEGATIVE NEGATIVE Screening urine tricyclic antidepressants detection NEGATIVE NEGATIVE Urine methadone detection by screening method NEGATIVE NEGATIVE Urine oxycodone detection NEGATIVE NEGATIVE Urine propoxyphene detection NEGATIVE NEGATIVE Complete urinalysis with reflex to culture - 09/10/17 22:15 Urine color determination YELLOW NRG Urine clarity determination CLEAR NRG Urine pH measurement by test strip 6.5 5-9 Specific gravity of urine by test strip 1.010 1.016-1.022 Urine protein assay by test strip, semi-quantitative NEGATIVE NEGATIVE Urine glucose detection by automated test strip NEGATIVE NEGATIVE Erythrocytes detection in urine sediment by light microscopy 3+ NEGATIVE Urine ketones detection by automated test strip 2+ NEGATIVE Urine nitrite detection by test strip NEGATIVE NEGATIVE Urine total bilirubin detection by test strip NEGATIVE NEGATIVE Urine urobilinogen measurement by automated test strip (mass/volume) 4 mg/dL NORMAL Urine leukocyte esterase detection by dipstick 1+ NEGATIVE Automated urine sediment erythrocyte count by microscopy (number/high power field) [HPF] NRG Automated urine sediment leukocyte count by microscopy (number/high power field) [HPF] NRG Bacteria detection in urine sediment by light microscopy TRACE NRG Squamous epithelial cells detection in urine sediment by light microscopy 10-25 NRG Crystals detection in urine sediment by light microscopy NONE NRG Casts detection in urine sediment by light microscopy NONE NRG Mucus detection in urine sediment by light microscopy NEGATIVE NRG Complete urinalysis with reflex to culture NO NRG Complete blood count (CBC) with automated white blood cell (WBC) differential - 09/10/17 22:20 Blood leukocytes automated count (number/volume) 7.9 10*3/uL 4.3-11.0 Blood erythrocytes automated count (number/volume) 4.64 10*6/uL 4.35-5.85 Venous blood hemoglobin measurement (mass/volume) 13.6 g/dL 11.5-16.0 Blood hematocrit (volume fraction) 38 % 35-52 Automated erythrocyte mean corpuscular volume 83 [foz_us] 80-99 Automated erythrocyte mean corpuscular hemoglobin (mass per erythrocyte) 29 pg 25-34 Automated erythrocyte mean corpuscular hemoglobin concentration measurement (mass/volume) 35 g/dL 32-36 Automated erythrocyte distribution width ratio 13.6 % 10.0- 14.5 Automated blood platelet count (count/volume) 229 10*3/uL 130-400 Automated blood platelet mean volume measurement 9.1 [foz_us] 7.4-10.4 Automated blood neutrophils/100 leukocytes 73 % 42-75 Automated blood lymphocytes/100 leukocytes 14 % 12-44 Blood monocytes/100 leukocytes 11 % 0-12 Automated blood eosinophils/100 leukocytes 1 % 0-10 Automated blood basophils/100 leukocytes 0 % 0-10 Blood neutrophils automated count (number/volume) 5.8 10*3 1.8-7.8 Blood lymphocytes automated count (number/volume) 1.1 10*3 1.0-4.0 Blood monocytes automated count (number/volume) 0.9 10*3 0.0- 1.0 Automated eosinophil count 0.1 10*3/uL 0.0-0.3 Automated blood basophil count (count/volume) 0.0 10*3/uL 0.0-0.1 Serum heterophile antibody titer - 09/10/17 22:20 Serum heterophile antibody titer NEGATIVE NEGATIVE Comprehensive metabolic panel - 09/10/17 22:20 Serum or plasma sodium measurement (moles/volume) 138 mmol/L 135-145 Serum or plasma potassium measurement (moles/volume) 3.5 mmol/L 3.6-5.0 Serum or plasma chloride measurement (moles/volume) 108 mmol/L 98-107 Carbon dioxide 19 mmol/L 21-32 Serum or plasma anion gap determination (moles/volume) 11 mmol/L 5-14 Serum or plasma urea nitrogen measurement (mass/volume) 5 mg/dL 7-18 Serum or plasma creatinine measurement (mass/volume) 0.71 mg/dL 0.60-1.30 Serum or plasma urea nitrogen/creatinine mass ratio 7 NRG Serum or plasma creatinine measurement with calculation of estimated glomerular filtration rate > NRG Serum or plasma glucose measurement (mass/volume) 94 mg/dL 70-105 Serum or plasma calcium measurement (mass/volume) 9.1 mg/dL 8.5-10.1 Serum or plasma total bilirubin measurement (mass/volume) 0.9 mg/dL 0.1-1.0 Serum or plasma alkaline phosphatase measurement (enzymatic activity/volume) 108 U/L 40-136 Serum or plasma aspartate aminotransferase measurement (enzymatic activity/volume) 70 U/L 5-34 Serum or plasma alanine aminotransferase measurement (enzymatic activity/volume) 109 U/L 0-55 Serum or plasma protein measurement (mass/volume) 7.2 g/dL 6.4-8.2 Serum or plasma albumin measurement (mass/volume) 4.3 g/dL 3.2-4.5 Magnesium - 09/10/17 22:20 Magnesium 2.0 mg/dL 1.8-2.4 Serum or plasma troponin i.cardiac measurement (mass/volume) - 09/10/17 22:20 Serum or plasma troponin i.cardiac measurement (mass/volume) < ng/mL <0.30 Serum or plasma amylase measurement (enzymatic activity/volume) - 09/10/17 22:20 Serum or plasma amylase measurement (enzymatic activity/volume) 42 U/L 25-125 PT panel in platelet poor plasma by coagulation assay - 09/10/17 22:20 Prothrombin time (PT) in platelet poor plasma by coagulation assay 14.2 s 12.2-14.7 INR in platelet poor plasma or blood by coagulation assay 1.1 0.8-1.4 Activated partial thromboplastin time (aPTT) in platelet poor plasma bycoagulation assay - 09/10/17 22:20 Activated partial thromboplastin time (aPTT) in platelet poor plasma bycoagulation assay 29 s 24-35 Lipase - 09/10/17 22:20 Lipase 27 U/L 8-78 Serum or plasma lithium measurement (moles/volume) - 09/10/17 22:20 BNP level < pg/mL <100.0 Complete urinalysis with reflex to culture - 08/21/18 19:45 Urine color determination YELLOW NRG Urine clarity determination VERY CLOUDY NRG Urine pH measurement by test strip 6 5-9 Specific gravity of urine by test strip 1.005 1.016-1.022 Urine protein assay by test strip, semi-quantitative 1+ NEGATIVE Urine glucose detection by automated test strip NEGATIVE NEGATIVE Erythrocytes detection in urine sediment by light microscopy 5+ NEGATIVE Urine ketones detection by automated test strip NEGATIVE NEGATIVE Urine nitrite detection by test strip NEGATIVE NEGATIVE Urine total bilirubin detection by test strip NEGATIVE NEGATIVE Urine urobilinogen measurement by automated test strip (mass/volume) NORMAL NORMAL Urine leukocyte esterase detection by dipstick 2+ NEGATIVE Automated urine sediment erythrocyte count by microscopy (number/high power field) [HPF] NRG Automated urine sediment leukocyte count by microscopy (number/high power field) [HPF] NRG Bacteria detection in urine sediment by light microscopy FEW NRG Squamous epithelial cells detection in urine sediment by light microscopy 2-5 NRG Crystals detection in urine sediment by light microscopy NONE NRG Casts detection in urine sediment by light microscopy NONE NRG Mucus detection in urine sediment by light microscopy NEGATIVE NRG Complete urinalysis with reflex to culture YES NRG Bacterial urine culture - 08/21/18 19:45 Bacterial urine culture 3 OR MORE NRG COLONY COUNT >100,000/ML NRG FTX;REPORTABLE GRAM POSITIVE ISOLATES; SUGGESTING NRG FREE TEXT ENTRY 2 PROBABLE COLLECTION CONTAMINATION WITH NRG FREE TEXT ENTRY 3 SKIN OTTO. NO SUSCEPTIBILITY PERFORMED. NRG Complete blood count (CBC) with automated white blood cell (WBC) differential - 08/21/18 20:11 Blood leukocytes automated count (number/volume) 11.5 10*3/uL 4.3-11.0 Blood erythrocytes automated count (number/volume) 4.97 10*6/uL 4.35-5.85 Venous blood hemoglobin measurement (mass/volume) 14.6 g/dL 11.5-16.0 Blood hematocrit (volume fraction) 40 % 35-52 Automated erythrocyte mean corpuscular volume 81 [foz_us] 80-99 Automated erythrocyte mean corpuscular hemoglobin (mass per erythrocyte) 29 pg 25-34 Automated erythrocyte mean corpuscular hemoglobin concentration measurement (mass/volume) 36 g/dL 32-36 Automated erythrocyte distribution width ratio 13.4 % 10.0- 14.5 Automated blood platelet count (count/volume) 281 10*3/uL 130-400 Automated blood platelet mean volume measurement 9.0 [foz_us] 7.4-10.4 Automated blood neutrophils/100 leukocytes 69 % 42-75 Automated blood lymphocytes/100 leukocytes 23 % 12-44 Blood monocytes/100 leukocytes 6 % 0-12 Automated blood eosinophils/100 leukocytes 2 % 0-10 Automated blood basophils/100 leukocytes 0 % 0-10 Blood neutrophils automated count (number/volume) 7.9 10*3 1.8-7.8 Blood lymphocytes automated count (number/volume) 2.6 10*3 1.0-4.0 Blood monocytes automated count (number/volume) 0.7 10*3 0.0- 1.0 Automated eosinophil count 0.2 10*3/uL 0.0-0.3 Automated blood basophil count (count/volume) 0.0 10*3/uL 0.0-0.1 Serum or plasma choriogonadotropin measurement (units/volume) - 08/21/18 20:11 Serum or plasma choriogonadotropin measurement (units/volume) 09788 m[iU]/mL <5 ABO+Rh group - 08/21/18 20:11 ABO+Rh group OP NRG Transfusion band number [id number] NR HCG, QUANTITATIVE - 08/23/18 10:33 [place], [place], Q[place] [address] mIU/mL NRG Complete blood count (CBC) with automated white blood cell (WBC) differential - 08/29/18 13:39 Blood leukocytes automated count (number/volume) 11.0 10*3/uL 4.3-11.0 Blood erythrocytes automated count (number/volume) 5.09 10*6/uL 4.35-5.85 Venous blood hemoglobin measurement (mass/volume) 14.7 g/dL 11.5-16.0 Blood hematocrit (volume fraction) 41 % 35-52 Automated erythrocyte mean corpuscular volume 80 [foz_us] 80-99 Automated erythrocyte mean corpuscular hemoglobin (mass per erythrocyte) 29 pg 25-34 Automated erythrocyte mean corpuscular hemoglobin concentration measurement (mass/volume) 36 g/dL 32-36 Automated erythrocyte distribution width ratio 13.2 % 10.0- 14.5 Automated blood platelet count (count/volume) 305 10*3/uL 130-400 Automated blood platelet mean volume measurement 9.4 [foz_us] 7.4-10.4 Automated blood neutrophils/100 leukocytes 72 % 42-75 Automated blood lymphocytes/100 leukocytes 18 % 12-44 Blood monocytes/100 leukocytes 6 % 0-12 Automated blood eosinophils/100 leukocytes 3 % 0-10 Automated blood basophils/100 leukocytes 0 % 0-10 Blood neutrophils automated count (number/volume) 8.0 10*3 1.8-7.8 Blood lymphocytes automated count (number/volume) 2.0 10*3 1.0-4.0 Blood monocytes automated count (number/volume) 0.7 10*3 0.0- 1.0 Automated eosinophil count 0.4 10*3/uL 0.0-0.3 Automated blood basophil count (count/volume) 0.0 10*3/uL 0.0-0.1 Comprehensive metabolic panel - 08/29/18 13:39 Serum or plasma sodium measurement (moles/volume) 141 mmol/L 135-145 Serum or plasma potassium measurement (moles/volume) 3.8 mmol/L 3.6-5.0 Serum or plasma chloride measurement (moles/volume) 106 mmol/L 98-107 Carbon dioxide 24 mmol/L 21-32 Serum or plasma anion gap determination (moles/volume) 11 mmol/L 5-14 Serum or plasma urea nitrogen measurement (mass/volume) 8 mg/dL 7-18 Serum or plasma creatinine measurement (mass/volume) 0.72 mg/dL 0.60-1.30 Serum or plasma urea nitrogen/creatinine mass ratio 11 NRG Serum or plasma creatinine measurement with calculation of estimated glomerular filtration rate > NRG Serum or plasma glucose measurement (mass/volume) 108 mg/dL 70-105 Serum or plasma calcium measurement (mass/volume) 9.7 mg/dL 8.5-10.1 Serum or plasma total bilirubin measurement (mass/volume) 0.5 mg/dL 0.1-1.0 Serum or plasma alkaline phosphatase measurement (enzymatic activity/volume) 78 U/L 40-136 Serum or plasma aspartate aminotransferase measurement (enzymatic activity/volume) 15 U/L 5-34 Serum or plasma alanine aminotransferase measurement (enzymatic activity/volume) 16 U/L 0-55 Serum or plasma protein measurement (mass/volume) 7.6 g/dL 6.4-8.2 Serum or plasma albumin measurement (mass/volume) 4.6 g/dL 3.2-4.5 Serum or plasma choriogonadotropin measurement (units/volume) - 08/29/18 13:39 Serum or plasma choriogonadotropin measurement (units/volume) 2953 m[iU]/mL <5 Complete urinalysis with reflex to culture - 08/29/18 13:58 Urine color determination RED NRG Urine clarity determination VERY CLOUDY NRG Urine pH measurement by test strip 6.5 5-9 Specific gravity of urine by test strip 1.010 1.016-1.022 Urine protein assay by test strip, semi-quantitative 3+ NEGATIVE Urine glucose detection by automated test strip NEGATIVE NEGATIVE Erythrocytes detection in urine sediment by light microscopy 5+ NEGATIVE Urine ketones detection by automated test strip NEGATIVE NEGATIVE Urine nitrite detection by test strip NEGATIVE NEGATIVE Urine total bilirubin detection by test strip NEGATIVE NEGATIVE Urine urobilinogen measurement by automated test strip (mass/volume) NORMAL NORMAL Urine leukocyte esterase detection by dipstick 2+ NEGATIVE Automated urine sediment erythrocyte count by microscopy (number/high power field) TNTC NRG Automated urine sediment leukocyte count by microscopy (number/high power field) RARE NRG Bacteria detection in urine sediment by light microscopy NEGATIVE NRG Crystals detection in urine sediment by light microscopy NONE NRG Casts detection in urine sediment by light microscopy NONE NRG Mucus detection in urine sediment by light microscopy NEGATIVE NRG Complete urinalysis with reflex to culture NO NRG Encounters ACCT No. Visit Date/Time Discharge Status Pt. Type Provider Facility Loc./Unit Complaint [id number] 08/23/2018 10:25:00 08/23/2018 23:59:59 CLS Outpatient JERRI WISE [facility] [id number] 08/23/2018 10:25:00 Document Registration [id number] 08/29/2018 15:56:00 08/29/2018 22:00:00 DIS Outpatient LORELEI CONTRERAS, TIFFANIE Guadarrama [facility] D C [id number] 08/23/2018 07:32:00 08/23/2018 23:59:59 CLS Outpatient FARSHAD ARMSTRONG MD [facility] RAD VAGINAL BLEEDING IN [id number] 08/21/2018 19:05:00 08/21/2018 21:22:00 DIS Emergency FARSHAD ARMSTRONG MD [facility] ER BLEEDING AND 10 WEEKS [id number] 09/10/2017 21:00:00 09/10/2017 23:33:00 DIS Emergency MACIEJ ARAIZA DO [facility] ER CHILLS/CP/ARMS TINGLING
[2018-10-13] MEDS ORDERED: ACETAMINOPHEN 500 MG TAB (TYLENOL) PO STA (09:06)
[2018-10-13] MEDS ORDERED: AMOXICILLIN 500 MG (POLYMOX) CAP PO STA (09:07)
--- NOTE | 2018-10-13 09:14 | ED EENT ---
History of Present Illness General Chief Complaint: Dental Problems/Pain Stated Complaint: DENTAL PAIN Nursing Triage Note: AMB TO ROOM C/O DENTAL PAIN SINCE THURSDAY Source: patient Exam Limitations: no limitations History of Present Illness Date Seen by Provider: Oct 13, 2018 Time Seen by Provider: 08:54 Initial Comments Here with report of right lower posterior jaw pain that she relates to a bad tooth. States the pain is radiating to her right ear. Denies purulent drainage. Denies swallowing or breathing problems. She is unsure if she is . She did recently have miscarriage in August. Timing/Duration: gradual, last week Severity: moderate Location: dental Prearrival Treatment: no prearrival treatment Associated Symptoms: No cough; facial pain/swelling; No fever, No nasal congestion/drainage, No sinus infection, No sore throat; tooth pain; No voice change Allergies and Home Medications Allergies Coded Allergies: No Known Drug Allergies (Unverified , 09/10/17) Home Medications No Active Prescriptions or Reported Meds Patient Home Medication List Home Medication List Reviewed: Yes Review of Systems Review of Systems Constitutional: see HPI; No chills, No fever Ears: See HPI Nose: no symptoms reported Mouth: see HPI, pain; denies purulent discharge Throat: no symptoms reported Respiratory: no symptoms reported Cardiovascular: no symptoms reported Gastrointestinal: no symptoms reported Past [place]-[id number]-[id number] Hx Past Med/Social Hx: Reviewed Nursing Past Med/Soc Hx Patient Social History Alcohol Use: Denies Use Recreational Drug Use: No Smoking Status: Never a Smoker 2nd Hand Smoke Exposure: No Recent Foreign Travel: No Contact w/Someone Who Travel: No Recent Infectious Disease Expo: No Recent Hopitalizations: No Seasonal Allergies Seasonal Allergies: No Past Medical History Surgeries: No Respiratory: No Cardiac: No Neurological: No Reproductive Disorders: No Genitourinary: No Gastrointestinal: No Musculoskeletal: No Endocrine: No HEENT: No Cancer: No Psychosocial: No Integumentary: No Blood Disorders: No Family Medical History Reviewed Nursing Family Hx Physical Exam Vital Signs Vital Signs - First Documented 10/13/18 08:24 Temp 99.0 Pulse 79 Resp 18 B/P (MAP) 122/88 (99) Pulse Ox 99 Height, Weight, BMI Height: 5'3.00" Weight: 190lbs. oz. 86.537799ra; BMI Method:Stated General Appearance: WD/WN, no apparent distress Ears: bilateral ear auricle normal, bilateral ear canal normal, bilateral ear TM normal Mouth/Throat: pharynx normal, dental tenderness Neck: non-tender, full range of motion, supple, normal inspection Cardiovascular: regular rate, rhythm, no murmur Respiratory: lungs clear, normal breath sounds Neurologic/Psychiatric: alert, oriented x 3 Skin: normal color, warm/dry Progress/Results/Core Measures Results/Orders My Orders Orders - JAYASHREE CLAROS MD Urine Bedside (10/13/18 08:56) Lidocaine 2% Viscous 15 Ml (Xylocaine Vi (10/13/18 09:15) Acetaminophen Tablet (Tylenol Tablet) (10/13/18 09:06) Amoxicillin 1000mg Po (10/13/18 09:07) Vital Signs/I&O 10/13/18 08:24 Temp 99.0 Pulse 79 Resp 18 B/P (MAP) 122/88 (99) Pulse Ox 99 Blood Pressure Mean: 99 Progress Progress Note : Progress Note Seen and evaluated. Bedside UCG ordered and done. She is positive on the urine test. Patient was informed. Tylenol 1 g by mouth given. Amoxicillin 1 g by mouth given. We will give her topical lidocaine solution for her to pain. She was instructed to follow-up with [facility] to establish OB care for which the patient verbalized understanding and agreement. Discharged home with return precautions. Patient verbalize understanding instructions and agreement with plan. Departure Impression Primary Impression: Dental caries Additional Impression: Positive test Disposition: 01 HOME, SELF-CARE Condition: Improved Departure-Patient Inst. Decision time for Depature: 09:14 Referrals: [facility] (PCP/Family) Primary Care Physician Patient Instructions: Dental Pain (DC), Tests Add. Discharge Instructions: All discharge instructions reviewed with patient and/or family. Voiced understanding. You may take Tylenol/acetaminophen 1000 mg every 6 hours as needed for pain. You may use topical lidocaine solution on gauze pad applied to the area of concern hourly as needed to decrease pain. The lidocaine solution will none the area but will also numb your mouth and throat if he swallowed reduce. Try not to follow the juice. It is very important that he follow up with a dentist as soon as possible. You'll also need to establish obstetric care as urine test was positive. Call the [facility] for appointment. Return for other concerns as needed. Take medications as directed. Scripts Amoxicillin (Amoxicillin) 500 Mg Capsule 500 MG PO TID, #21 CAP 0 Refills Prov: JAYASHREE CLAROS MD 10/13/18 Images Mouth/Nose 1 - Caries 2 - Caries Copy Copies To 1: JOSE FLETCHER MD, TIMOTHY D MD Oct 13, 2018 09:14
[2018-10-13] MEDS ORDERED: LIDOCAINE 2% VISCOUS 15 ML UDC PO ONE (09:15)
[2018-10-13] MEDS ORDERED: AMOX500C2 PO (09:26)
[2018-10-13 09:30] VITALS: BP 122/88
== END 2018-10-13 09:39 | disposition home or self-care (01) ==
LOC: ER 08:22 → EDUNIT# 08:22 → ER 09:39
DX: O99.611 Diseases of the digestive system complicating pregnancy, first trimester (principal); K02.9 Dental caries, unspecified; Z3A.01 Less than 8 weeks gestation of pregnancy
CPT/HCPCS: 84703; 99283

== ENCOUNTER 2018-12-31 01:51 | Emergency (ER) | payer MEDICAID ==
[~2018-12-31] VITALS: Ht 160 cm; Wt 83.6 kg
[~2018-12-31 01:51] MED LIST changes: +AMOX500C2 PO
[2018-12-31] MEDS ORDERED: CLIN300C11 PO (02:39)
--- NOTE | 2018-12-31 02:42 | ED EENT ---
History of Present Illness General Chief Complaint: Dental Problems/Pain Stated Complaint: DENTAL PAIN,RT SWOLLEN JAW Nursing Triage Note: Patient ambulatory to ER room 7 with complaint of right lower dental pain since thursday. Patient does have swelling to the right lower jaw. She does not have a dentist appointment. Patient is approximately 15 weeks. She states she has an appointment next week with [facility] for a sonogram to determine due date. She has been taking tylenol for the pain with last dose at 22:45 pm this evening. Source: patient Exam Limitations: no limitations History of Present Illness Date Seen by Provider: Dec 31, 2018 Time Seen by Provider: 02:26 Initial Comments This 33-year-old patient at about 15 weeks gestational age presents to the emergency room with right lower dental pain for about 48 hours. She has taken Tylenol without much relief. She has not seen a dentist. She denies fever. Allergies and Home Medications Allergies Coded Allergies: No Known Drug Allergies (Unverified , 09/10/17) Home Medications Amoxicillin 500 Mg Capsule, 500 MG PO TID Prescribed by: JAYASHREE CLAROS on 10/13/18 0926 Clindamycin HCl 300 Mg Capsule, 300 MG PO QID Prescribed by: FARSHAD VALERIO on 12/31/18 0239 Patient Home Medication List Home Medication List Reviewed: Yes Review of Systems Review of Systems Constitutional: no symptoms reported Eyes: No Symptoms Reported Ears: No Symptoms Reported Nose: no symptoms reported Mouth: see HPI Throat: no symptoms reported Respiratory: no symptoms reported Cardiovascular: no symptoms reported Gastrointestinal: no symptoms reported Musculoskeletal: no symptoms reported Skin: no symptoms reported Neurological: No Symptoms Reported Past Ikgbisc-Hjsbrc-Xcjsbp Hx Past Med/Social Hx: Reviewed Nursing Past Med/Soc Hx Patient Social History Alcohol Use: Denies Use Recreational Drug Use: No Smoking Status: Never a Smoker 2nd Hand Smoke Exposure: No Recent Foreign Travel: No Contact w/Someone Who Travel: No Recent Infectious Disease Expo: No Recent Hopitalizations: No Physical Abuse: No Sexual Abuse: No Mistreated: No Fear: No Immunizations Up To Date PED Vaccines UTD: Yes Date of Influenza Vaccine: Jan 04, 2018 Seasonal Allergies Seasonal Allergies: No Past Medical History Surgeries: Yes (D & C, ) Respiratory: No Cardiac: No Neurological: No : Yes (possibly 15 weeks) Last Menstrual Period: Jun 11, 2018 Reproductive Disorders: No Genitourinary: No Gastrointestinal: No Musculoskeletal: No Endocrine: No HEENT: No Cancer: No Psychosocial: No Integumentary: No Blood Disorders: No Physical Exam Vital Signs Vital Signs - First Documented 12/31/18 01:56 Temp 36.3 Pulse 76 Resp 18 B/P (MAP) 134/71 (92) Pulse Ox 97 O2 Delivery Room Air Height, Weight, BMI Height: 5'3.00" Weight: 190lbs. oz. 86.852060ac; 32.00 BMI Method:Stated General Appearance: WD/WN, no apparent distress Eyes: bilateral eye normal inspection, bilateral eye PERRL, bilateral eye EOMI Ears: bilateral ear auricle normal, bilateral ear canal normal, bilateral ear TM normal Nose: normal inspection Mouth/Throat: pharynx normal, dental tenderness, other (severe dental decay of some teeth. Partially erupted wisdom teeth noted. Gingivitis with swelling, erythema, and tenderness, especially around the right jaw. 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, no motor/sensory deficits, alert, normal mood/affect, oriented x 3 Skin: normal color, warm/dry Progress/Results/Core Measures Results/Orders My Orders Orders - FARSHAD ARMSTRONG MD Clindamycin Capsule (Cleocin Capsule) (12/31/18 02:45) Hydrocodone/Apap 5/325 Tablet (Lortab 5 (12/31/18 02:45) Medications Given in ED Current Medications Medications Dose Ordered Sig/Sharri Route Start Time Stop Time Status Last Admin Dose Admin Acetaminophen/ Hydrocodone Bitart 1 tab ONCE ONCE PO 12/31/18 02:45 12/31/18 02:46 DC 12/31/18 02:42 1 TAB Clindamycin HCl 450 mg ONCE ONCE PO 12/31/18 02:45 12/31/18 02:46 DC 12/31/18 02:41 450 MG Vital Signs/I&O 12/31/18 12/31/18 01:56 02:49 Temp 36.3 36.3 Pulse 76 76 Resp 18 18 B/P (MAP) 134/71 (92) 134/71 (92) Pulse Ox 97 97 O2 Delivery Room Air Room Air Blood Pressure Mean: 92 Progress Progress Note : Progress Note Patient was given a hydrocodone for the pain. Gingivitis and possible dental abscess was treated with clindamycin. Departure Impression Primary Impression: Dental decay Additional Impressions: Pain, dental Gingivitis Disposition: HOME, SELF-CARE Condition: Improved Departure-Patient Inst. Decision time for Depature: 02:35 Referrals: [facility][1[facility] [place] (PCP/Family) Primary Care Physician Patient Instructions: Dental Pain (DC), Tooth Decay, Adult (DC) Add. Discharge Instructions: [place] your teeth gently at least twice daily with a soft bristle toothbrush. Good oral care is extremely important for your overall health, especially during . Complete your antibiotics as prescribed. For pain you may continue taking Tylenol (acetaminophen) up to 1000 mg every 6 hours as needed. Follow-up with the dentist as soon as possible. Return to care if you have worsening symptoms despite treating with antibiotics, especially if you develop fevers over 100. All discharge instructions reviewed with patient and/or family. Voiced understa nding. Scripts Clindamycin HCl (Clindamycin HCl) 300 Mg Capsule 300 MG PO QID, #40 CAP Prov: FARSHAD ARMSTRONG MD 12/31/18 FARSHAD ARMSTRONG MD Dec 31, 2018 02:42
[2018-12-31] MEDS ORDERED: CLINDAMYCIN 150 MG (CLEOCIN) CAP PO ONE (02:45)
[2018-12-31] MEDS ORDERED: HYDROcodone/APAP 5 MG/325 MG (LORTAB) TAB PO ONE (02:45)
[2018-12-31 02:49] VITALS: BP 134/71
== END 2018-12-31 02:50 | disposition home or self-care (01) ==
LOC: EDUNIT# 01:51 → ER 01:53
DX: O99.612 Diseases of the digestive system complicating pregnancy, second trimester (principal); K02.9 Dental caries, unspecified; K05.30 Chronic periodontitis, unspecified; Z3A.15 15 weeks gestation of pregnancy
CPT/HCPCS: 99283

== ENCOUNTER 2018-12-31 19:04 | Emergency (ER) | payer MEDICAID ==
[~2018-12-31] VITALS: Ht 160 cm; Wt 84.1 kg
[~2018-12-31 19:04] MED LIST changes: +CLIN300C11 PO
--- NOTE | 2018-12-31 20:00 | ED GU-Female ---
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 She is about 15 weeks , has an appointment with [facility] the [facility] on Thursday for an ultrasound. Timing/Duration: this morning Severity/Quality: cramping Location: suprapubic Radiation: none Activities at Onset: none Prior Genitourinary Problems: none Associated Symptoms: denies symptoms Allergies and Home Medications Allergies Coded Allergies: No Known Drug Allergies (Unverified , 09/10/17) Home Medications Amoxicillin 500 Mg Capsule, 500 MG PO TID Prescribed by: JAYASHREE CLAROS on 10/13/18 0926 Clindamycin HCl 300 Mg Capsule, 300 MG PO QID Prescribed by: FARSHAD VALERIO on 12/31/18 0239 Patient Home Medication List Home Medication List Reviewed: Yes Review of Systems Review of Systems Constitutional: see HPI EENTM: see HPI Respiratory: no symptoms reported Cardiovascular: no symptoms reported Genitourinary: no symptoms reported Musculoskeletal: see HPI Skin: no symptoms reported Psychiatric/Neurological: No Symptoms Reported Endocrine: No Symptoms Reported Past Xxkvuzk-Vhwwzb-Adzryx Hx Patient Social History 2nd Hand Smoke Exposure: No Recent Foreign Travel: No Contact w/Someone Who Travel: No Recent Hopitalizations: No Immunizations Up To Date PED Vaccines UTD: Yes Date of Influenza Vaccine: Jan 04, 2018 Seasonal Allergies Seasonal Allergies: No Past Medical History Surgeries: Yes (D & C, ) Respiratory: No Cardiac: No Neurological: No Reproductive Disorders: No Genitourinary: No Gastrointestinal: No Musculoskeletal: No Endocrine: No HEENT: No Cancer: No Psychosocial: No Integumentary: No Blood Disorders: No Physical Exam Vital Signs Vital Signs - First Documented 12/31/18 19:35 Temp 37.3 Pulse 82 Resp 16 B/P (MAP) 141/82 (101) Pulse Ox 99 O2 Delivery Room Air Capillary Refill : Height, Weight, BMI Height: 5'3.00" Weight: 190lbs. oz. 86.813198jp; 32.00 BMI Method:Stated General Appearance: WD/WN, no apparent distress HEENT: PERRL/EOMI, normal ENT inspection Respiratory: no respiratory distress, no accessory muscle use Gastrointestinal: normal bowel sounds, non tender, soft Extremities: normal range of motion, non-tender Neurologic/Psychiatric: alert, normal mood/affect, oriented x 3 Skin: normal color, warm/dry Progress/Results/Core Measures Suspected Sepsis SIRS Temperature: Pulse: Respiratory Rate: Laboratory Tests 12/31/18 20:05: White Blood Count 14.9H Blood Pressure / Mean: Laboratory Tests 12/31/18 20:05: Platelet Count 274 Results/Orders Lab Results Laboratory Tests Test 12/31/18 19:45 12/31/18 20:05 Range/Units Urine Color YELLOW Urine Clarity CLEAR Urine pH 6 5-9 Urine Specific Carey 1.025 H 1.016-1.022 Urine Protein 2+ H NEGATIVE Urine Glucose (UA) NEGATIVE NEGATIVE Urine Ketones 4+ H NEGATIVE Urine Nitrite NEGATIVE NEGATIVE Urine Bilirubin NEGATIVE NEGATIVE Urine Urobilinogen 1 NORMAL MG/DL Urine Leukocyte Esterase 1+ H NEGATIVE Urine RBC (Auto) 1+ H NEGATIVE Urine RBC RARE /HPF Urine WBC RARE /HPF Urine Squamous Epithelial Cells 5-10 /HPF Urine Crystals NONE /LPF Urine Bacteria TRACE /HPF Urine Casts NONE /LPF Urine Mucus NEGATIVE /LPF Urine Culture Indicated NO White Blood Count 14.9 H 4.3-11.0 10^3/uL Red Blood Count 5.00 4.35-5.85 10^6/uL Hemoglobin 14.2 11.5-16.0 G/DL Hematocrit 40 35-52 % Mean Corpuscular Volume 81 80-99 FL Mean Corpuscular Hemoglobin 28 25-34 PG Mean Corpuscular Hemoglobin Concent 35 32-36 G/DL Red Cell Distribution Width 14.5 10.0-14.5 % Platelet Count 274 130-400 10^3/uL Mean Platelet Volume 9.4 7.4-10.4 FL Neutrophils (%) (Auto) 84 H 42-75 % Lymphocytes (%) (Auto) 11 L 12-44 % Monocytes (%) (Auto) 5 0-12 % Eosinophils (%) (Auto) 1 0-10 % Basophils (%) (Auto) 0 0-10 % Neutrophils # (Auto) 12.5 H 1.8-7.8 X 10^3 Lymphocytes # (Auto) 1.6 1.0-4.0 X 10^3 Monocytes # (Auto) 0.7 0.0-1.0 X 10^3 Eosinophils # (Auto) 0.1 0.0-0.3 10^3/uL Basophils # (Auto) 0.0 0.0-0.1 10^3/uL Neutrophils % (Manual) 88 % Lymphocytes % (Manual) 8 % Monocytes % (Manual) 1 % Eosinophils % (Manual) 1 % Basophils % (Manual) 0 % Band Neutrophils 2 % Blood Morphology Comment NORMAL Human Chorionic Gonadotropin, Quant 93462 H <5 MIU/ML My Orders Orders - GIGI GONZALEZ APRN Cbc With Automated Diff (12/31/18 19:50) Ua Culture If Indicated (12/31/18 19:50) Hcg,Quantitative (12/31/18 19:50) Manual Differential (12/31/18 20:05) Vital Signs/I&O 12/31/18 19:35 Temp 37.3 Pulse 82 Resp 16 B/P (MAP) 141/82 (101) Pulse Ox 99 O2 Delivery Room Air Capillary Refill : Progress Note : Progress Note 1999-bedside ultrasound shows positive movement and cardiac activity Departure Impression Primary Impression: Abdominal cramping affecting Disposition: HOME, SELF-CARE Condition: Stable Departure-Patient Inst. Decision time for Depature: 21:13 Referrals: [facility] [place] (PCP/Family) Primary Care Physician Patient Instructions: NO INSTRUCTIONS GIVEN Add. Discharge Instructions: 1. Return to ER for any concerns 2. Follow-up with your doctor next week 3. All discharge instructions reviewed with patient and/or family. Voiced understanding. GIGI GONZALEZ APRN Dec 31, 2018 20:00
[2018-12-31 20:01] LABS: BILIRUBIN,URINE NEGATIVE (NEGATIVE); CLARITY,URINE CLEAR; COLOR,URINE YELLOW; GLUCOSE, URINE (UA) NEGATIVE (NEGATIVE); KETONES,URINE 4+ (NEGATIVE); LEUKOCYTE ESTERASE ,URINE 1+ (NEGATIVE); NITRITE,URINE NEGATIVE (NEGATIVE); PH,URINE 6 (5-9); PROTEIN,URINE 2+ (NEGATIVE); UROBILINOGEN,URINE 1 MG/DL (NORMAL)
[2018-12-31 20:07] LABS: BACTERIA,URINE TRACE /HPF; RBC,URINE RARE /HPF; WBC,URINE RARE /HPF
[2018-12-31 20:26] LABS: BASOPHILS % (AUTO) 0 % (0-10); EOSINOPHILS # (AUTO) 0.1 10^3/uL (0.0-0.3); EOSINOPHILS % (AUTO) 1 % (0-10); HEMATOCRIT 40 % (35-52); HEMOGLOBIN 14.2 G/DL (11.5-16.0); LYMPHOCYTES # (AUTO) 1.6 X 10^3 (1.0-4.0); LYMPHOCYTES % (AUTO) 11 % (12-44); MEAN CORPUSCULAR HEMOGLOBIN 28 PG (25-34); MEAN CORPUSCULAR HGB CONC 35 G/DL (32-36); MEAN CORPUSCULAR VOLUME 81 FL (80-99); MEAN PLATELET VOLUME 9.4 FL (7.4-10.4); MONOCYTES # (AUTO) 0.7 X 10^3 (0.0-1.0); MONOCYTES % (AUTO) 5 % (0-12); NEUTROPHILS # (AUTO) 12.5 X 10^3 (1.8-7.8); NEUTROPHILS % (AUTO) 84 % (42-75); PLATELET COUNT 274 10^3/uL (130-400); RED CELL DISTRIBUTION WIDTH 14.5 % (10.0-14.5); WHITE BLOOD COUNT 14.9 10^3/uL (4.3-11.0)
[2018-12-31 20:43] LABS: BAND NEUTROPHILS 2 %; BASOPHILS % (MANUAL) 0 %; EOSINOPHILS % (MANUAL) 1 %; LYMPHOCYTES % (MANUAL) 8 %; MONOCYTES % (MANUAL) 1 %; NEUTROPHILS % (MANUAL) 88 %
[2018-12-31 20:44] LABS: RBC MORPH NORMAL
[2018-12-31 21:19] VITALS: BP 149/80
== END 2018-12-31 21:20 | disposition home or self-care (01) ==
LOC: EDUNIT# 19:04 → ER 19:06
DX: O26.892 Other specified pregnancy related conditions, second trimester (principal); R10.30 Lower abdominal pain, unspecified; Z3A.15 15 weeks gestation of pregnancy
CPT/HCPCS: 36415; 81000; 84702; 85007; 85027

== ENCOUNTER 2019-01-31 08:59 | Outpatient (CLI) | payer MEDICAID ==
--- NOTE | 2019-01-31 09:50 | NUR ---
JAY HERNANDEZ presented to unit via ambulatory from ED, with c/o NO MOVEMENT. JAY HERNANDEZ weighed, gowned, voided, and to bed. EFHM and TOCO applied, VS taken. JAY HERNANDEZ oriented to bed controls, call light, TV, heat, and A/C controls.
[2019-01-31 09:54] VITALS: BP 119/65
--- NOTE | 2019-01-31 10:00 | NUR ---
this rn at bedside. pt states feeling lots of movement now. fht doppler at 139. this rn talked to dr gordon in person, report given. dr gordon states pt may dc to home. rn is pulled out of room for another delivery. report given to verónica torres at this time.
--- NOTE | 2019-01-31 10:13 | NUR ---
out of WS via ambulation no s/s of distress noted. with d/c papers in hand.
--- NOTE | 2019-02-01 08:35 | Physician Query-Final Dx ---
NENO CARRASQUILLO 02/01/19 0835: Clinic Account Progress/Dx Physician Query: Please give diagnosis Please include # weeks gestation Date of Service Jan 31, 2019 at 08:59 TONYA ADAMS DO 02/07/19 0728: Clinic Account Progress/Dx Physician Query: Please give diagnosis (Intrauterine at 30 5/7 weeks 2. Decreased Movement) Date of Service January 31, 2019 DIAGNOSIS: Diagnosis Intrauterine at 30 5/7 weeks 2. Decreased Movement NENO CARRASQUILLO Feb 01, 2019 08:35 TONYA LAMBERT DO Feb 07, 2019 07:28 POS
== END 2019-01-31 10:13 | disposition home or self-care (01) ==
LOC: WSo 08:59 → LDRP 09:04 → WSo 10:13
PROVIDERS: ATTEND Obstetrics & Gynecology
DX: O36.8130 Decreased fetal movements, third trimester, not applicable or unspecified (principal); Z3A.30 30 weeks gestation of pregnancy
CPT/HCPCS: 99212

== ENCOUNTER 2019-02-09 22:56 | Emergency (ER) | payer MEDICAID ==
[~2019-02-09] VITALS: Ht 165 cm; Wt 85.1 kg
--- NOTE | 2019-02-09 23:26 | NUR ---
pt given hat, stool specimen requested.
--- NOTE | 2019-02-10 00:28 | ED GI ---
General Chief Complaint: Rect Problems Stated Complaint: BM WITH MUCUS AND BLOOD Nursing Triage Note: c/o mucous/bloody diarrhea since 02/07/19 Sepsis Screen: No Definite Risk Source of Information: Patient Exam Limitations: No Limitations History of Present Illness Date Seen by Provider: Feb 10, 2019 Time Seen by Provider: 00:11 Initial Comments Patient presents ER by private conveyance with chief complaint of last couple days having some constipation and straining and only passing small amounts of thin mucousy stool. Today she noticed a blood trace in the stool. She has no history of bleeding disorders anal fissures. No rectal pain. She does not use anything for constipation. She is 23 weeks 0 days she is a . Followed by Dr. Conklin. No abdominal pain nausea vomiting fevers chills Allergies and Home Medications Allergies Coded Allergies: No Known Drug Allergies (Unverified , 09/10/17) Home Medications No Active Prescriptions or Reported Meds Patient Home Medication List Home Medication List Reviewed: Yes Review of Systems Review of Systems Constitutional: No chills, No diaphoresis EENTM: No Blurred Vision, No Double Vision Respiratory: Denies Cough, Denies Shortness of Air Cardiovascular: Denies Chest Pain, Denies Edema Gastrointestinal: Constipated; Denies Diarrhea, Denies Nausea, Denies Poor Fluid Intake Genitourinary: Denies Discharge, Denies Drainage Musculoskeletal: No back pain, No joint pain All Other Systems Reviewed Negative Unless Noted: Yes Past Uihhoar-Lcpcfd-Jshmuu Hx Patient Social History Alcohol Use: Denies Use Recreational Drug Use: No Smoking Status: Never a Smoker 2nd Hand Smoke Exposure: No Recent Foreign Travel: No Contact w/Someone Who Travel: No Recent Infectious Disease Expo: No Recent Hopitalizations: No Physical Abuse: No Sexual Abuse: No Mistreated: No Fear: No Immunizations Up To Date Tetanus Booster (TDap): Unknown PED Vaccines UTD: Yes Date of Influenza Vaccine: Jan 11, 2019 Seasonal Allergies Seasonal Allergies: No Past Medical History Surgeries: Yes (D & C, ) Respiratory: No Cardiac: No Neurological: No : Yes Last Menstrual Period: Jun 18, 2018 Reproductive Disorders: No Genitourinary: No Gastrointestinal: No Musculoskeletal: No Endocrine: No HEENT: No Cancer: No Psychosocial: No Integumentary: No Blood Disorders: No Physical Exam Vital Signs Vital Signs - First Documented 02/09/19 23:09 Temp 36.9 Pulse 75 Resp 16 B/P (MAP) 127/69 (88) Pulse Ox 99 O2 Delivery Room Air Capillary Refill : Less Than 3 Seconds Height/Weight/BMI Height: 5'3.00" Weight: 190lbs. oz. 86.713351hv; 31.00 BMI Method:Stated General Appearance: WD/WN, no apparent distress HEENT: PERRL/EOMI, pharynx normal Respiratory: no respiratory distress, no accessory muscle use Cardiovascular: normal peripheral pulses, regular rate, rhythm Gastrointestinal: soft, other (gravid) Neurologic/Psychiatric: alert, oriented x 3 Skin: normal color, warm/dry Progress/Results/Core Measures Results/Orders My Orders Orders - BATSHEVA BENTON Occult Blood Stool (02/09/19 23:20) Vital Signs/I&O 02/09/19 23:09 Temp 36.9 Pulse 75 Resp 16 B/P (MAP) 127/69 (88) Pulse Ox 99 O2 Delivery Room Air Blood Pressure Mean: 88 POS Progress Progress Note : Time: 00:25 Progress Note Put her on MiraLAX and enemas and then maintenance Colace plus or minus MiraLAX. Follow up with Primary care at Routine schedule appointments. heart tones acceptable in the 150s. Departure Impression Primary Impression: Constipation Qualified Codes: K59.00 - Constipation, unspecified Additional Impressions: Hemorrhoids Qualified Codes: K64.9 - Unspecified hemorrhoids and not yet delivered in second trimester Disposition: 01 HOME, SELF-CARE Condition: Stable Departure-Patient Inst. Decision time for Depature: 00:27 Referrals: [facility] [place] Primary Care Physician JOSE CONKLIN MD (Family) Primary Care Physician Patient Instructions: Hemorrhoids (DC), Constipation in Adults Add. Discharge Instructions: MiraLAX 1 capful in 6-8 ounces of fluid 2-3 times a day for the next couple days. You may also use an enema at the same time or having difficulty having a bowel movement. Drink lots of fluids. Start Colace 100-200 mg daily for routine maintenance. All discharge instructions reviewed with patient and/or family. Voiced understanding. Scripts Docusate Sodium (Colace) 100 Mg Capsule 100 MG PO DAILY for 30 Days, #30 CAP 0 Refills Prov: BATSHEVA BENTON 02/10/19 Na Phos,M-B/Na Phos,Di-Ba (Fleet Enema) 133 Ml Enema 133 ML RC DAILY PRN PRN for CONSTIPATION-2ND LINE, #2 EA 0 Refills Prov: BATSHEVA BENTON 02/10/19 Polyethylene Glycol 3350 (Miralax) 17 Gm Powd.pack 17 GM PO BID PRN PRN for CONSTIPATION-1ST LINE, #1 EACH 0 Refills Prov: BATSHEVA BENTON 02/10/19 Work/School Note: Work Release Form Date Seen in the Emergency Department: Feb 10, 2019 Return to Work: Feb 11, 2019 Restrictions: No Restrictions BATSHEVA BENTON Feb 10, 2019 00:28 POS
[2019-02-10] MEDS ORDERED: POLY17PO6 PO (00:29)
[2019-02-10] MEDS ORDERED: NA P133E22 RC (00:29)
[2019-02-10] MEDS ORDERED: DOCU-143 PO (00:29)
[2019-02-10 00:31] VITALS: BP 125/65
== END 2019-02-10 00:35 | disposition home or self-care (01) ==
LOC: EDUNIT# 22:56 → ER 22:59
DX: O99.612 Diseases of the digestive system complicating pregnancy, second trimester (principal); K59.00 Constipation, unspecified; O22.42 Hemorrhoids in pregnancy, second trimester; Z3A.23 23 weeks gestation of pregnancy

== ENCOUNTER 2019-06-02 06:00 | Inpatient (IN) | payer MEDICAID ==
[2019-06-02] VITALS (32 sets, daily range): BP systolic 107–150; BP diastolic 54–85
[~2019-06-02] VITALS: Ht 160 cm; Wt 87.3 kg
[~2019-06-02 06:00] MED LIST changes: +DOCU-143 PO; +NA P133E22 RC; +POLY17PO6 PO
--- NOTE | 2019-06-02 06:05 | NUR ---
JAY HERNANDEZ presented to unit via ambulation from ED, accompanied by SO, with c/o INDUCTION. JAY HERNANDEZ weighed, gowned, voided, and to bed. EFHM and TOCO applied, VS taken. JAY HERNANDEZ oriented to bed controls, call light, TV, heat, and A/C controls.
[2019-06-02] MEDS ORDERED: OXYTOCIN PRE-MIX DRIP 500 ML IV SCH ×3 (06:15→13:45)
[2019-06-02] MEDS ORDERED: D5 LR IV SOLUTION 1,000 ML IV SCH (06:15)
[2019-06-02] MEDS ORDERED: D5 LR IV SOLUTION 1,000 ML IV ONE (06:25)
--- NOTE | 2019-06-02 06:48 | History & Physical-OB ---
OB - Chief Complaint & HPI Date/Time Date of Admission: Date of Admission: Jun 02, 2019 at 06:00 Date seen by a Provider: Jun 02, 2019 Time Seen by a Provider: 06:46 Chief Complaint/History OB-Reason for Admission/Chief: Induction of Labor Hx : 9 Hx Para: 5 Expected Date of Delivery: Jun 08, 2019 Gestational Age in Weeks: 39 Gestational Age in Days: 1 Indication for induction: maternal discomfort History of Labs O+, antibod neg, RI, HIV/hepB/RPR NR. GC/chlamydia neg. Glucola negative. Penta screen low risk. GBS neg. Allergies and Home Medications Allergies Coded Allergies: No Known Drug Allergies (Unverified , 09/10/17) Home Medications Vit No.124/Iron/FA 1 Each Tablet, 1 EACH PO DAILY, (Reported) Patient Home Medication List Home Medication List Reviewed: Yes OB - History Hx of Present Care: Yes Ultrasounds: Normal mid trimester US (low lying placenta early, resolved) Obstetrical Complications: None Medical Complications: None Obstetrical History Hx : 9 Hx Para: 5 Hx # Term Pregnancies: 4 Hx # Pregnancies: 1 Number of Living Children: 4 Hx Total # of Abortions (Spona: 3 Hx Multiple Gestation: No Hx Ectopic : No Hx Stillbirth: No Hx Complication: No Hx Induced Hypertens: No Hx Maternal Gestational Diabet: No Hx Hemorrhage: No Delivery History Hx Dystocia: No Hx Forceps Assisted Delivery: No Hx Vacuum Extraction Assisted: No Hx Placenta Abnormality: No Hx Distress: No Hx Large For Gestational Age I: No Hx Small for Gestational Age I: No Hx Section: No Hx Vaginal Delivery Post C-Sec: No Hx Blood Disorders: No Adverse Rxn to Tranfusion: No Patient Past Medical History PMHx: Denies SurgHx: D&C Social History/Family History HIV/AIDS: No Recent Infectious Disease Expo: No Sexually Transmitted Disease: No Alcohol Use: Denies Use Recreational Drug Use: No Smoking Cessation: Never smoker 2nd Hand Smoke Exposure: No Immunizations Tetanus Booster (TDap): Less than 5yrs (04/04/2019) Date of Influenza Vaccine: Jan 19, 2019 Rubella: immune RPR/VDRL: Negative GBS Status: Negative HBsAG: Negative OB - Admission Exam Physical Exam HEENT: NCAT Extremities: Normal Cervical Dilatation: 3cm Effacement: 0% Station: -3 Membranes: Intact Heart Rate: 140's Decelerations: Variable Decelerations Group Home Variability: Average (6-25) Contractions on Admission: None Lowry Scoring Tool (Modified) Dilation (cm): 3-4cm (2) Effacement (%): 0-30% (0) Descent/Station: -3 (0) Cervix Consistency: Soft (2) Cervix Position: Anterior (2) Add 1 point for: Each previous vaginal delivery (1) (5) Lowry Score: 11 OB - Assessment/Plan/Diagnosis Assessment Assessment: induction of labor Admission Dx 39 week gestation Induction of labor GBS negative Admission Status: Inpatient Order (span 2 midnights) Reason for Inpatient Admission: Induction, labor, delivery and course Plan Plan: Induction Induction Method: per Pitocin Protocol JOSE FLETCHER MD Jun 02, 2019 06:48
[2019-06-02] MEDS ORDERED: PREN-142 PO (07:02)
[2019-06-02 07:06] LABS: BASOPHILS % (AUTO) 0 % (0-10); EOSINOPHILS # (AUTO) 0.2 10^3/uL (0.0-0.3); EOSINOPHILS % (AUTO) 1 % (0-10); HEMATOCRIT 37 % (35-52); HEMOGLOBIN 12.9 G/DL (11.5-16.0); LYMPHOCYTES # (AUTO) 2.2 X 10^3 (1.0-4.0); LYMPHOCYTES % (AUTO) 17 % (12-44); MEAN CORPUSCULAR HEMOGLOBIN 29 PG (25-34); MEAN CORPUSCULAR HGB CONC 35 G/DL (32-36); MEAN CORPUSCULAR VOLUME 85 FL (80-99); MEAN PLATELET VOLUME 9.6 FL (7.4-10.4); MONOCYTES # (AUTO) 0.6 X 10^3 (0.0-1.0); MONOCYTES % (AUTO) 5 % (0-12); NEUTROPHILS # (AUTO) 9.4 X 10^3 (1.8-7.8); NEUTROPHILS % (AUTO) 76 % (42-75); PLATELET COUNT 252 10^3/uL (130-400); RED CELL DISTRIBUTION WIDTH 14.6 % (10.0-14.5); WHITE BLOOD COUNT 12.5 10^3/uL (4.3-11.0)
[2019-06-02] MEDS ORDERED: LIDOCAINE/EPI 2% 1:200,00 (XYLOCAINE) 10 ML VIAL ONE (11:13)
--- NOTE | 2019-06-02 12:59 | OB Labor & Delivery Record ---
Vag Delivery Note Vag Delivery Note Date of Delivery: 06/02/19 Preoperative Diagnosis: Oneyda Antunez is a 34 /Para 9 / 5,Gestational Age (wks)39with 1 day Postoperative Diagnosis: Same Surgeon: JOSE FLETCHER Component Prep Operator: Cami Ramirez, MS3 Anesthesia: None Delivery Type: Findings: Viable male infant, apgars 7/8, weight 6#9 Lacerations: first degree perineal Intact placenta with 3 vessel cord. Nuchal cord x 1 delivered through, no body cord or shoulder dystocia Estimated Blood Loss: 250 ml Complications: None Condition: Stable Description of Procedure: The patient is a 34 year old female who presented for IOL. She was admitted and informed consent was obtained. Her labor course was remarkable for recurrent variable decelerations. She progressed to complete dilatation and began to push. She was then set up for delivery. The 's head was delivered atraumatically in the occiput posterior position. Nuchal cord x 1 noted, but maternal pushing effort had already delivered anterior shoulder, delivered through cord, the shoulders and remainder of the infant's body were then delivered without difficulty. Upon delivery, the head was held below the level of the perineum and the mouth and nares were bulb suctioned. The cord was doubly clamped and cut and the infant vigorous on maternal abdomen. An intact placenta with 3-vessel cord delivered via [place] and there was found to be minimal bleeding.~ Vigorous fundal massage was performed and the fundus was found to be firm. IV oxytocin was given. Examination of the vagina and perineum revealed a first degree laceration repaired in the usual fashion with 3-0 vicryl rapide suture. Following the repair, sponge, instrument and needle counts were correct. Mom and baby were both in stable condition in the labor suite. Vitals - Labs Vital Signs - I&O Vital Signs 06/02/19 06/02/19 06/02/19 08:25 08:45 10:00 Temp 36.4 Pulse 82 Resp 18 B/P (MAP) 124/75 (91) Pulse Ox 98 O2 Delivery Room Air Labs Laboratory Tests 06/02/19 06:52: White Blood Count 12.5H, Red Blood Count 4.41, Hemoglobin 12.9, Hematocrit 37, Mean Corpuscular Volume 85, Mean Corpuscular Hemoglobin 29, Mean Corpuscular Hemoglobin Concent 35, Red Cell Distribution Width 14.6H, Platelet Count 252, Mean Platelet Volume 9.6, Neutrophils (%) (Auto) 76H, Lymphocytes (%) (Auto) 17, Monocytes (%) (Auto) 5, Eosinophils (%) (Auto) 1, Basophils (%) (Auto) 0, Neutrophils # (Auto) 9.4H, Lymphocytes # (Auto) 2.2, Monocytes # (Auto) 0.6, Eosinophils # (Auto) 0.2, Basophils # (Auto) 0.0 JOSE FLETCHER MD Jun 02, 2019 12:59
[2019-06-02] MEDS ORDERED: TETANUS,DIPTH,PERTUSS P/F (BOOSTRIX) 0.5 ML VIAL IM ONE (13:45)
[2019-06-02] MEDS ORDERED: MEASLES,MUMPS,RUBELLA 1 EA INJ SQ ONE (13:45)
[2019-06-02] MEDS ORDERED: BENZOCAINE/MENTHOL (DERMOPLAST) 60 ML CAN TP PRN (13:45)
[2019-06-02] MEDS ORDERED: WITCH HAZEL(TUCKS) 40 EA JAR TOP PRN (13:45)
[2019-06-02] MEDS ORDERED: CATHETER FLUSH 10 ML SYR IV SCH ×2 (14:00)
--- NOTE | 2019-06-02 14:30 | NUR ---
Pt assisted to standing at side of bed, fresh pad and underwear on. Pt ambulates to bathroom without incident. Voids without difficulty. Pericare performed and fresh vpad on. New gown on. Pt assisted to room 311 via ambulation accompanied by RN, , and S.O. Pt and S.O. oriented to room and call light. packet explained. Pt denies needs or concerns at this time.
[2019-06-02] MEDS: IBUPROFEN 600 MG (MOTRIN) TAB PO SCH ×2 (15:29→20:57)
[2019-06-02] MEDS: DOCUSATE SODIUM 100 MG (COLACE) CAP PO SCH (20:57)
[2019-06-03 00:39] VITALS: BP 94/53
[2019-06-03] MEDS: IBUPROFEN 600 MG (MOTRIN) TAB PO SCH ×2 (02:46→10:52)
[2019-06-03 04:12] VITALS: BP 97/62
[2019-06-03 07:00] LABS: BASOPHILS % (AUTO) 0 % (0-10); EOSINOPHILS # (AUTO) 0.1 10^3/uL (0.0-0.3); EOSINOPHILS % (AUTO) 1 % (0-10); HEMATOCRIT 33 % (35-52); HEMOGLOBIN 11.6 G/DL (11.5-16.0); LYMPHOCYTES # (AUTO) 2.5 X 10^3 (1.0-4.0); LYMPHOCYTES % (AUTO) 19 % (12-44); MEAN CORPUSCULAR HEMOGLOBIN 30 PG (25-34); MEAN CORPUSCULAR HGB CONC 35 G/DL (32-36); MEAN CORPUSCULAR VOLUME 85 FL (80-99); MEAN PLATELET VOLUME 9.3 FL (7.4-10.4); MONOCYTES # (AUTO) 0.8 X 10^3 (0.0-1.0); MONOCYTES % (AUTO) 6 % (0-12); NEUTROPHILS % (AUTO) 75 % (42-75); PLATELET COUNT 242 10^3/uL (130-400); RED CELL DISTRIBUTION WIDTH 14.7 % (10.0-14.5); WHITE BLOOD COUNT 13.5 10^3/uL (4.3-11.0)
--- NOTE | 2019-06-03 07:30 | NUR ---
Dr Luz here to see pt
--- NOTE | 2019-06-03 08:10 | Discharge Summary ---
Diagnosis/Chief Complaint Date of Admission Jun 02, 2019 at 06:00 Date of Discharge June 03, 2019 Admission Diagnosis Admission Diagnosis 1. Intrauterine at term Discharge Diagnosis 1. Intrauterine at term Chief Complaint/HPI Chief Complaint/HPI 34-year-old gravida2 now term2 who initially presented to labor and delivery during the morning of June 02, 2019. Discharge Summary-OBS Procedures 1. Spontaneous vaginal delivery Discharge Physical Examination Allergies: Coded Allergies: No Known Drug Allergies (Unverified , 09/10/17) Vitals & I&Os Intake and Output 06/03/19 00:00 Intake Total 1500 ml Balance 1500 ml Vital Sign - Last 12Hours Date Time Temp Pulse Resp B/P (MAP) Pulse Ox O2 Delivery O2 Flow Rate FiO2 06/03/19 04:12 36.5 63 18 97/62 (74) 99 Room Air General Appearance: No Acute Distress Respiratory: Clear to Auscultation Cardiovascular: Regular Rate Abdominal: Soft (With uterus firm) Hospital Course Was the Problem List Reviewed?: Yes Patient underwent spontaneous vaginal delivery during the morning of June 02, 2019. She had a hemoglobin on admission of 12.9. Following delivery she underwent routine care orders. Patient had no complications during the remainder of hospital stay. In the morning of June 03, 2019 her hemoglobin was noted to be 10.3. Patient was ambulatory and without complaints. She had all questions answered and she will follow up with Dr. Conklin in 6 weeks. Labs Laboratory Tests 06/03/19 06:43: White Blood Count 13.5H, Red Blood Count 3.91L, Hemoglobin 11.6, Hematocrit 33L, Mean Corpuscular Volume 85, Mean Corpuscular Hemoglobin 30, Mean Corpuscular Hemoglobin Concent 35, Red Cell Distribution Width 14.7H, Platelet Count 242, Mean Platelet Volume 9.3, Neutrophils (%) (Auto) 75, Lymphocytes (%) (Auto) 19, Monocytes (%) (Auto) 6, Eosinophils (%) (Auto) 1, Basophils (%) (Auto) 0, Neutrophils # (Auto) 10.0H, Lymphocytes # (Auto) 2.5, Monocytes # (Auto) 0.8, Eosinophils # (Auto) 0.1, Basophils # (Auto) 0.0 Discharge Instructions to patient/family Please see electronic discharge instructions given to patient. Discharge Medications Reviewed and agree with Discharge Medication list on patient's Discharge Instruction sheet Clinical Quality Measures DVT/VTE Risk/Contraindication: Risk Factor Score Per Nursin RFS Level Per Nursing on Admit: 2=Moderate RAYNE FULLER MD Jun 03, 2019 08:10
[2019-06-03] MEDS ORDERED: IBUP-844 PO (08:11)
--- NOTE | 2019-06-03 08:12 | Discharge Inst-Women's Service ---
Discharge Inst-Women's Serv Depart Medication/Instructions New, Converted or Re-Newed RX: Call to Patients Pharmacy ([facility]) Problems Reviewed?: Yes Consults/Follow Up Additional Follow Up: Yes (Dr. Conklin in 6 weeks) Activity Activity: Activity as Tolerated Driving Instructions: No Driving for 1 Week Nothing Inside Vagina: No [place] (For 6 weeks) Diet Discharge Diet: Regular Diet Return to The Hospital For: As below Symptoms to Report to : Bleeding Excessive, Fever Over 101 Degrees F, Vaginal Discharge Foul For Any Problems or Questions: Contact Your Physician RAYNE FULLER MD Jun 03, 2019 08:12
--- NOTE | 2019-06-03 09:15 | NUR ---
To room for assessment, medications. Pt sleeping at this time. S.O. awake. Introduced self and discussed with S.O. will let pt sleep and will return for assessment later. No needs or concerns voiced at this time.
[2019-06-03 10:50] VITALS: BP 115/59
[2019-06-03] MEDS: DOCUSATE SODIUM 100 MG (COLACE) CAP PO SCH (10:52)
--- NOTE | 2019-06-03 15:00 | NUR ---
Discharge instructions explained to pt with copy provided to pt per Dennis Villalpando RN. Pt notified of script at preferred pharmacy and follow up appointment. Pt verbalizes understanding of instructions and signs to verify. Denies needs or concerns at this time.
--- NOTE | 2019-06-03 16:15 | NUR ---
Pt ambulates off unit to private vehicle accompanied by RN, S.o., friend, and infant with all personal belongings. No s/s of distress noted.
== END 2019-06-03 16:15 | disposition home or self-care (01) | DRG 807 ==
LOC: LDRP 06:00
PROVIDERS: ADMIT Family Medicine; ATTEND Family Medicine
PROC: 10E0XZZ Delivery of Products of Conception, External Approach (ICD-10-PCS; principal; 2019-06-02)
PROC: 0HQ9XZZ Repair Perineum Skin, External Approach (ICD-10-PCS; 2019-06-02)
PROC: 3E033VJ Introduction of Other Hormone into Peripheral Vein, Percutaneous Approach (ICD-10-PCS; 2019-06-02)
DX: O70.0 First degree perineal laceration during delivery (principal); O69.81X0 Labor and delivery complicated by cord around neck, without compression, not applicable or unspecified; Z37.0 Single live birth; Z3A.39 39 weeks gestation of pregnancy
CPT/HCPCS: 36415; 85025; 86780; 86850; 86900; 86901

== ENCOUNTER 2021-09-16 12:13 | Emergency (ER) | payer MEDICAID ==
[~2021-09-16] VITALS: Ht 160 cm; Wt 88.5 kg
[~2021-09-16 12:13] MED LIST changes: +CLIN-144 PO; -CLIN300C11 PO; +DOXY-311 PO; -DOXY100C42 PO; +IBUP-844 PO; +PREN-142 PO
--- NOTE | 2021-09-16 12:26 | ED Chest Pain ---
General Chief Complaint: Chest Pain Stated Complaint: CHEST PAIN History of Present Illness Date Seen by Provider: Sep 16, 2021 Time Seen by Provider: 12:26 Initial Comments 36 yr F is here with c/o retrosternal chest pain which began as a radiating pain from her left upper extremity today during work. On the way to the ER patient felt as if that pain was radiating into her chest behind her sternum. Patient has mild acid reflux symptoms and heartburn. Denies shortness of breath, palpitation, fever, abdominal pain, diaphoresis. Allergies and Home Medications Allergies Coded Allergies: No Known Drug Allergies (Unverified , 09/10/17) Patient Home Medication List Home Medication List Reviewed: Yes Ibuprofen (Ibu) 600 Mg Tablet, 600 MG PO Q6HR Prescribed by: RAYNE FULLER on 06/03/19 0811 Vit No.124/Iron/FA ( Vitamin Tablet) 1 Each Tablet, 1 EACH PO DAILY, (Reported) Entered as Reported by: JOSE FLETCHER on 06/02/19 0702 Review of Systems Review of Systems Constitutional: no symptoms reported EENTM: No Symptoms Reported Respiratory: No Symptoms Reported Cardiovascular: Chest Pain Gastrointestinal: No Symptoms Reported Genitourinary: No Symptoms Reported Musculoskeletal: no symptoms reported Skin: no symptoms reported Psychiatric/Neurological: No Symptoms Reported Endocrine: No Symptoms Reported Hematologic/Lymphatic: No Symptoms Reported Past Qfmzfki-Tgjfzz-Hzmske Hx Immunizations Up To Date Tetanus Booster (TDap): Less than 5yrs PED Vaccines UTD: Yes Seasonal Allergies Seasonal Allergies: Yes Past Medical History Surgeries: Yes (D & C, ) Respiratory: No Cardiac: No Neurological: No Reproductive Disorders: No Sexually Transmitted Disease: No HIV/AIDS: No Genitourinary: No Gastrointestinal: No Musculoskeletal: No Endocrine: No HEENT: No Cancer: No Psychosocial: No Integumentary: No Blood Disorders: No Adverse Reaction/Blood Tranf: No Family Medical History FH: stroke 19 FATHER Physical Exam Vital Signs Vital Signs - First Documented 09/16/21 12:14 Temp 36.7 Pulse 75 Resp 16 B/P (MAP) 147/75 (99) O2 Delivery Room Air Capillary Refill : Height, Weight, BMI Height: 5'3.00" Weight: 190lbs. oz. 86.957964kr; 34.10 BMI Method:Stated General Appearance: No Apparent Distress, WD/WN, Anxious HEENT: PERRL/EOMI Neck: Full Range of Motion Respiratory: Chest Non Tender, Lungs Clear, Normal Breath Sounds Cardiovascular: Regular Rate, Rhythm, No Edema Gastrointestinal: Normal Bowel Sounds, Non Tender, Soft Extremity: Normal Range of Motion Neurologic/Psychiatric: Alert, Oriented x3, No Motor/Sensory Deficits Skin: Normal Color Lymphatic: No Adenopathy Progress/Results/Core Measures Results/Orders Lab Results Laboratory Tests Test 09/16/21 12:22 09/16/21 14:00 Range/Units White Blood Count 12.5 H 4.3-11.0 10^3/uL Red Blood Count 5.36 H 3.80-5.11 10^6/uL Hemoglobin 15.2 11.5-16.0 g/dL Hematocrit 44 35-52 % Mean Corpuscular Volume 82 80-99 fL Mean Corpuscular Hemoglobin 28 25-34 pg Mean Corpuscular Hemoglobin Concent 35 32-36 g/dL Red Cell Distribution Width 13.2 10.0-14.5 % Platelet Count 350 130-400 10^3/uL Mean Platelet Volume 8.7 L 9.0-12.2 fL Immature Granulocyte % (Auto) 1 % Neutrophils (%) (Auto) 66 42-75 % Lymphocytes (%) (Auto) 26 12-44 % Monocytes (%) (Auto) 5 0-12 % Eosinophils (%) (Auto) 2 0-10 % Basophils (%) (Auto) 1 0-10 % Neutrophils # (Auto) 8.3 H 1.8-7.8 10^3/uL Lymphocytes # (Auto) 3.2 1.0-4.0 10^3/uL Monocytes # (Auto) 0.6 0.0-1.0 10^3/uL Eosinophils # (Auto) 0.3 0.0-0.3 10^3/uL Basophils # (Auto) 0.1 0.0-0.1 10^3/uL Immature Granulocyte # (Auto) 0.1 0.0-0.1 10^3/uL Prothrombin Time 12.9 12.2-14.7 SEC INR Comment 0.9 0.8-1.4 Activated Partial Thromboplast Time 28 24-35 SEC Sodium Level 138 135-145 MMOL/L Potassium Level 4.2 3.6-5.0 MMOL/L Chloride Level 103 98-107 MMOL/L Carbon Dioxide Level 23 21-32 MMOL/L Anion Gap 12 5-14 MMOL/L Blood Urea Nitrogen 5 L 7-18 MG/DL Creatinine 0.64 0.60-1.30 MG/DL Estimat Glomerular Filtration Rate 119 BUN/Creatinine Ratio 8 Glucose Level 92 70-105 MG/DL Calcium Level 9.9 8.5-10.1 MG/DL Corrected Calcium 8.5-10.1 MG/DL Magnesium Level 2.2 1.6-2.4 MG/DL Total Bilirubin 0.5 0.1-1.0 MG/DL Aspartate Amino Transf (AST/SGOT) 26 5-34 U/L Alanine Aminotransferase (ALT/SGPT) 49 0-55 U/L Alkaline Phosphatase 155 H 40-136 U/L Troponin I < 0.30 <0.30 NG/ML Pro-B-Type Natriuretic Peptide 45.1 <75.0 PG/ML Total Protein 8.1 6.4-8.2 GM/DL Albumin 4.6 H 3.2-4.5 GM/DL Urine Color YELLOW Urine Clarity CLEAR Urine pH 6.0 5-9 Urine Specific [place] <=1.005 1.016-1.022 Urine Protein NEGATIVE NEGATIVE Urine Glucose (UA) NEGATIVE NEGATIVE Urine Ketones NEGATIVE NEGATIVE Urine Nitrite NEGATIVE NEGATIVE Urine Bilirubin NEGATIVE NEGATIVE Urine Urobilinogen 0.2 < = 1.0 MG/DL Urine Leukocyte Esterase NEGATIVE NEGATIVE Urine RBC (Auto) NEGATIVE NEGATIVE Urine RBC NONE /HPF Urine WBC RARE /HPF Urine Squamous Epithelial Cells 0-2 /HPF Urine Crystals NONE /LPF Urine Bacteria NEGATIVE /HPF Urine Casts NONE /LPF Urine Mucus NEGATIVE /LPF Urine Culture Indicated NO Urine Opiates Screen NEGATIVE NEGATIVE Urine Oxycodone Screen NEGATIVE NEGATIVE Urine Methadone Screen NEGATIVE NEGATIVE Urine Propoxyphene Screen NEGATIVE NEGATIVE Urine Barbiturates Screen NEGATIVE NEGATIVE Ur Tricyclic Antidepressants Screen NEGATIVE NEGATIVE Urine Phencyclidine Screen NEGATIVE NEGATIVE Urine Amphetamines Screen NEGATIVE NEGATIVE Urine Methamphetamines Screen NEGATIVE NEGATIVE Urine Benzodiazepines Screen NEGATIVE NEGATIVE Urine Cocaine Screen NEGATIVE NEGATIVE Urine Cannabinoids Screen NEGATIVE NEGATIVE My Orders Orders - AILYN WOODRUFF MD Cbc With Automated Diff (09/16/21 12:27) Magnesium (09/16/21 12:27) Chest 1 View Ap/Pa Only (09/16/21 12:27) Ekg Tracing (09/16/21 12:27) Comprehensive Metabolic Panel (09/16/21 12:27) Protime With Inr (09/16/21 12:27) Partial Thromboplastin Time (09/16/21 12:) O2 (09/16/21 12:27) Monitor-Rhythm Ecg Trace Only (09/16/21 12:27) Aspirin Chewable Tablet (Baby Aspirin Ch (09/16/21 12:30) Ed Iv/Invasive Line Start (09/16/21 12:27) Troponin I Fs (09/16/21 12:27) Probnp Fs (09/16/21 12:27) Drug Screen Stat (Urine) (09/16/21 12:27) Famotidine Tablet (Pepcid Tablet) (09/16/21 14:30) Antacid Suspension (Mylanta Suspension (09/16/21 14:30) Ua Culture If Indicated (09/16/21 15:13) Medications Given in ED Current Medications Medications Dose Ordered Sig/Sharri Route Start Time Stop Time Status Last Admin Dose Admin Al Hydrox/Mg Hydrox/Simethicone 30 ml ONCE ONCE PO 09/16/21 14:30 09/16/21 14:31 DC 09/16/21 14:37 30 ML Aspirin 324 mg ONCE ONCE PO 09/16/21 12:30 09/16/21 12:31 DC 09/16/21 12:53 324 MG Famotidine 20 mg ONCE ONCE PO 09/16/21 14:30 09/16/21 14:31 DC 09/16/21 14:37 20 MG Vital Signs/I&O 09/16/21 12:14 Temp 36.7 Pulse 75 Resp 16 B/P (MAP) 147/75 (99) O2 Delivery Room Air Progress Progress Note : Progress Note 1. CHEST PAIN: GERD: - chest pain resolved in ER - CXR: normal - TRoponin/ EKG: normal - Labs unremarkable, except borderline elevated WBC - UA - ASA 324mg STAT on initial presentation - Maalox and Pepcid given later -The patient was seen in the ED, and treated appropriately to presentation at a specific point in time. Patient is informed that there is a possibility that disease and illness can evolve and change in acuity rapidly or slowly after patient is discharged from the ER. Precautionary advice given to the patient for immediate return to ER if symptoms worsen or do not resolve, and to seek em ergency care sooner rather than later. Pt also advised on the importance of PCP follow up and compliance with management and follow up plan with PCP and/or specialist, as this is part of the management plan. Pt verbally expressed understanding. Initial ECG Impression Date: Sep 16, 2021 Initial ECG Impression Time: 12:20 Initial ECG Rate: 83 Initial ECG Rhythm: Normal Sinus Initial ECG Intervals: Normal Initial ECG Impression: Normal Diagnostic Imaging Diagonstic Imaging: Xray Plain Films/CT/US/NM/MRI: chest Comments [facility] [place], [place] NAME: JAY HERNANDEZ [facility] REC#: [id number] PT STATUS: REG ER : 1985 PHYSICIAN: AILYN WOODRUFF MD ADMIT DATE: 09/16/21/ER FS Draft Date of Exam:09/16/21 CHEST 1 VIEW AP/PA ONLY CLINICAL INDICATION: Patient with centralized chest pressure and left arm numbness. EXAM: Portable chest x-ray, upright view. COMPARISON: Chest x-ray dated 09/10/2017. FINDINGS: Lungs/pleura: Lungs are clear. There is no pneumothorax. There is no pleural effusion. Mediastinum: Unremarkable. Pulmonary vasculature: Unremarkable. Heart: Unremarkable. Bones/extrathoracic soft tissue: Unremarkable. IMPRESSION: There is no radiographic evidence of acute cardiopulmonary process. Dictated on workstation # [id number] Dict: 09/16/21 1239 Trans: 09/16/21 1241 [id number] Interpreted by: KARL NEFF MD Electronically signed by: Departure Impression Primary Impression: GERD (gastroesophageal reflux disease) Qualified Codes: K21.9 - Gastro-esophageal reflux disease without esoph agitis Disposition: HOME, SELF-CARE Condition: Improved Departure-Patient Inst. Referrals: [facility] (PCP/Family) Primary Care Physician Patient Instructions: Acid Reflux and GERD in Adults (DC) Add. Discharge Instructions: Pepcid 20mg twice a day for 14 days - Maalox only as needed for heartburn. - FOllow up with PCP in the next 7 days - GERD safe diet advised - Return to ER if symptoms worsen All discharge instructions reviewed with patient and/or family. Voiced understanding. AILYN WOODRUFF MD Sep 16, 2021 12:26
[2021-09-16] MEDS ORDERED: ASPIRIN 81 MG CHEW (CHILDREN'S ASA) PO ONE (12:30)
[2021-09-16 12:36] LABS: BASOPHILS # (AUTO) 0.1 10^3/uL (0.0-0.1); BASOPHILS % (AUTO) 1 % (0-10); EOSINOPHILS # (AUTO) 0.3 10^3/uL (0.0-0.3); EOSINOPHILS % (AUTO) 2 % (0-10); HEMATOCRIT 44 % (35-52); HEMOGLOBIN 15.2 g/dL (11.5-16.0); LYMPHOCYTES # (AUTO) 3.2 10^3/uL (1.0-4.0); LYMPHOCYTES % (AUTO) 26 % (12-44); MEAN CORPUSCULAR HEMOGLOBIN 28 pg (25-34); MEAN CORPUSCULAR HGB CONC 35 g/dL (32-36); MEAN CORPUSCULAR VOLUME 82 fL (80-99); MEAN PLATELET VOLUME 8.7 fL (9.0-12.2); MONOCYTES # (AUTO) 0.6 10^3/uL (0.0-1.0); MONOCYTES % (AUTO) 5 % (0-12); NEUTROPHILS # (AUTO) 8.3 10^3/uL (1.8-7.8); NEUTROPHILS % (AUTO) 66 % (42-75); PLATELET COUNT 350 10^3/uL (130-400); WHITE BLOOD COUNT 12.5 10^3/uL (4.3-11.0)
--- NOTE | 2021-09-16 12:42 | Diagnostic Imaging Report ---
CLINICAL INDICATION: Patient with centralized chest pressure and left arm numbness. EXAM: Portable chest x-ray, upright view. COMPARISON: Chest x-ray dated 09/10/2017. FINDINGS: Lungs/pleura: Lungs are clear. There is no pneumothorax. There is no pleural effusion. Mediastinum: Unremarkable. Pulmonary vasculature: Unremarkable. Heart: Unremarkable. Bones/extrathoracic soft tissue: Unremarkable. IMPRESSION: There is no radiographic evidence of acute cardiopulmonary process. Dictated by: Dictated on workstation # [id number]
[2021-09-16 13:00] LABS: INR 0.9 (0.8-1.4); PROTHROMBIN TIME PATIENT 12.9 SEC (12.2-14.7)
[2021-09-16 13:25] LABS: ALKALINE PHOSPHATASE 155 U/L (40-136); BILIRUBIN,TOTAL 0.5 MG/DL (0.1-1.0); BUN/CREATININE RATIO 8; CALCIUM 9.9 MG/DL (8.5-10.1); CARBON DIOXIDE 23 MMOL/L (21-32); CHLORIDE 103 MMOL/L (98-107); CREATININE SERUM 0.64 MG/DL (0.60-1.30); GFR ESTIMATED 119; GLUCOSE 92 MG/DL (70-105); MAGNESIUM 2.2 MG/DL (1.6-2.4); POTASSIUM 4.2 MMOL/L (3.6-5.0); SODIUM 138 MMOL/L (135-145)
[2021-09-16 13:26] LABS: ALANINE AMINOTRANSFERASE 49 U/L (0-55); ALBUMIN 4.6 GM/DL (3.2-4.5); TOTAL PROTEIN 8.1 GM/DL (6.4-8.2)
[2021-09-16] MEDS ORDERED: ANTACID SUSP 30 ML UDC (MYLANTA) PO ONE (14:30)
[2021-09-16] MEDS ORDERED: FAMOTIDINE 20 MG (PEPCID) TABLET PO ONE (14:30)
[2021-09-16 14:41] LABS: AMPHETAMINE SCREEN, URINE NEGATIVE (NEGATIVE); BARBITURATE SCREEN URINE NEGATIVE (NEGATIVE); BENZODIAZEPINES SCREEN URINE NEGATIVE (NEGATIVE); CANNABINOID SCREEN, URINE NEGATIVE (NEGATIVE); COCAINE SCREEN URINE NEGATIVE (NEGATIVE); METHADONE STAT NEGATIVE (NEGATIVE); OPIATE SCREEN URINE NEGATIVE (NEGATIVE); OXYCODONE STAT NEGATIVE (NEGATIVE); PROPOXYPHENE STAT NEGATIVE (NEGATIVE); TRICYCLIC ANTIDEPRESSANTS SCRE NEGATIVE (NEGATIVE)
[2021-09-16 16:37] LABS: CLARITY,URINE CLEAR; COLOR,URINE YELLOW
[2021-09-16 16:38] LABS: BACTERIA,URINE NEGATIVE /HPF; BILIRUBIN,URINE NEGATIVE (NEGATIVE); GLUCOSE, URINE (UA) NEGATIVE (NEGATIVE); KETONES,URINE NEGATIVE (NEGATIVE); LEUKOCYTE ESTERASE ,URINE NEGATIVE (NEGATIVE); NITRITE,URINE NEGATIVE (NEGATIVE); PROTEIN,URINE NEGATIVE (NEGATIVE); SQUAMOUS EPITHELIAL CELL,UR 0-2 /HPF; WBC,URINE RARE /HPF
[2021-09-16 17:31] VITALS: BP 129/67
== END 2021-09-16 17:31 | disposition home or self-care (01) ==
LOC: EDUNIT# 12:13 → ER FS 12:15
DX: K21.9 Gastro-esophageal reflux disease without esophagitis (principal)
CPT/HCPCS: 36415; 71045; 80053; 80306; 81000; 83735; 83880; 84484; 85025; 85610; 85730; 93005; 93041